=== PATIENT | male | born 1935 | race Caucasian/White ===

== ENCOUNTER 2016-12-12 15:12 | Emergency (ER) | payer MEDICARE, BC | END 2016-12-12 19:15 | disposition home or self-care (01) | DX: R00.1 Bradycardia, unspecified (principal); I10 Essential (primary) hypertension; I48.0 Paroxysmal atrial fibrillation; Z79.82 Long term (current) use of aspirin ==

== ENCOUNTER 2017-04-10 03:01 | Outpatient (CLI) | payer MEDICARE, BC | END 2017-04-10 03:02 | disposition critical access hospital (66) | LOC: EMS 03:01 | PROVIDERS: ATTEND Surgery | DX: R07.9 Chest pain, unspecified (principal); R11.0 Nausea; R06.02 Shortness of breath | CPT/HCPCS: A0425; A0427 ==

== ENCOUNTER 2017-04-10 03:44 | Emergency (ER) | payer MEDICARE, BC ==
[2017-04-10] MEDS ORDERED: MAG HYDROX/AL HYDROX/SIMETH 30 ML UDC PO STA ×2 (03:57→08:25)
[2017-04-10] MEDS ORDERED: FAMOTIDINE 20 MG TABLET PO STA (03:57)
[2017-04-10] MEDS ORDERED: SUCRALFATE 1 GM/10 ML UDC PO STA (03:57)
[2017-04-10] MEDS ORDERED: LIDOCAINE VISCOUS 2% 15 ML UDC MM STA (03:57)
[2017-04-10] MEDS ORDERED: SUCRALFATE 1 GM/10 ML UDC ONE (04:01)
--- NOTE | 2017-04-10 04:01 | ED Physician Documentation ---
PD HPI CHEST PAIN - Stated complaint Stated Complaint: CP/BACK PAIN - Chief complaint Chief Complaint: Cardiac - History obtained from History obtained from: Patient, Family, EMS - History of Present Illness Timing - onset: Today Timing - onset during: Sleep Timing - duration: Hours (2) Timing - details: Abrupt onset Pain level max: 10 Pain level now: 6 Quality: Pain Location: Substernal Radiation: Other (non-radiating) Improved by: Nitro (x2), ASA (EMS gave ASA and NTG [employer]) Worsened by: Inspiration, Movement, Palpation Associated symptoms: Shortness of air (states hard to take a deep breath). No: Diaphoresis, Nausea, Vomiting, Feeling faint / dizzy, General Weakness, Palpitations, Cough Similar symptoms before: Has not had sx before Recently seen: Not recently seen - Additional information Additional information: states ate "very spicy chance" last night before bed. Review of Systems Ten Systems: 10 systems reviewed and negative Constitutional: denies: Fever, Chills Ears: denies: Ear pain Nose: denies: Rhinorrhea / runny nose, Congestion Throat: denies: Sore throat Cardiac: denies: Chest pain / pressure Respiratory: denies: Cough GI: denies: Abdominal Pain, Nausea, Vomiting, Diarrhea Skin: denies: Rash Musculoskeletal: denies: Neck pain, Back pain Neurologic: denies: Focal weakness, Numbness, Headache PD PAST MEDICAL HISTORY - Past Medical History Past Medical History: Yes Cardiovascular: Hypertension, High cholesterol, Atrial fibrillation Respiratory: None Neuro: None Endocrine/Autoimmune: None GI: GERD : None HEENT: None Psych: Claustrophobia Musculoskeletal: None Derm: None - Past Surgical History Past Surgical History: Yes HEENT: Cataracts, Tonsil/Adenoidectomy - Present Medications Home Medications: Ambulatory Orders Medication Instructions Recorded Confirmed Aspirin [Zoila] 325 mg PO ONCE 02/01/14 04/10/17 Bicalutamide [Casodex] 25 mg PO DAILY 02/01/14 04/10/17 Tamsulosin [Flomax] 0.4 mg PO ONCE 02/01/14 04/10/17 Donepezil HCl 5 mg PO DAILY 04/10/17 04/10/17 Doxycycline Hyclate 100 mg PO BID #14 capsule 04/10/17 Omeprazole [PriLOSEC] 20 mg PO DAILY #30 capsule 04/10/17 - Allergies Allergies/Adverse Reactions: Allergies Allergy/AdvReac Type Severity Reaction Status Date / Time Penicillins Allergy Mild Rash Verified 02/01/14 09:59 - Social History Does the pt smoke?: No Smoking Status: Never smoker Does the pt drink ETOH?: No Does the pt have substance abuse?: No - Immunizations Immunizations are current?: Yes PD ED PE NORMAL - Vitals Vital signs reviewed: Yes - General General: Alert and oriented X 3, No acute distress, Well developed/nourished - HEENT HEENT: PERRL, Moist mucous membranes - Neck Neck: Supple, no meningeal sign, No bony TTP, No JVD, No bruit - Cardiac Cardiac: RRR, No murmur, Strong equal pulses - Respiratory Respiratory: No respiratory distress, Clear bilaterally - Abdomen Abdomen: Normal bowel sounds, Soft, Non distended, Other (TTP epigastric and RUQ. no peritoneal signs. ) - Derm Derm: Warm and dry - Extremities Extremities: No edema, No calf tenderness / cord - Neuro Neuro: Alert and oriented X 3 - Psych Psych: Normal mood, Normal affect Results - Vitals Vitals: Vital Signs - 24 hr 04/10/17 04/10/17 03:45 05:13 Temperature 36.7 C Heart Rate 67 54 L Respiratory 20 20 Rate Blood Pressure 140/71 H 96/64 O2 Saturation 99 98 Oxygen O2 Source Nasal cannula - EKG (time done) 0400 Rate: Rate (enter#) (56) Rhythm: NSR [place]: Normal Intervals: Normal [place] QRS: Normal Ischemia: Normal ST segments, Q waves (III, aVF) - Labs Labs: Laboratory Tests 04/10/17 04/10/17 04/10/17 04:15 04:15 04:15 WBC 6.8 RBC 3.66 L Hgb 11.4 L Hct 34.2 L MCV 93.4 MCH 31.2 H MCHC 33.4 RDW 13.4 Plt Count 155 MPV 7.4 Neut # 5.7 Lymph # 0.4 L [place] # 0.5 Eos # 0.1 Baso # 0.1 Absolute Nucleated RBC 0.00 Nucleated RBCs 0.0 Sodium 139 Potassium 3.7 Chloride 105 Carbon Dioxide 27 Anion Gap 7.0 BUN 21 H Creatinine 1.0 Estimated GFR (MDRD) 72 L Glucose 118 H Calcium 10.7 H Total Bilirubin 0.8 AST 20 ALT 18 Alkaline Phosphatase 54 Troponin I < 0.04 Total Protein 6.1 L Albumin 3.5 Globulin 2.6 Albumin/Globulin Ratio 1.3 Lipase 21 L 04/10/17 05:35 WBC RBC Hgb Hct MCV MCH MCHC RDW Plt Count MPV Neut # Lymph # [place] # Eos # Baso # Absolute Nucleated RBC Nucleated RBCs Sodium Potassium Chloride Carbon Dioxide Anion Gap BUN Creatinine Estimated GFR (MDRD) Glucose Calcium Total Bilirubin AST ALT Alkaline Phosphatase Troponin I < 0.04 Total Protein Albumin Globulin Albumin/Globulin Ratio Lipase - Rads (name of study) cxr Radiology: Prelim report reviewed, EMP read contemporaneously, See rad report ( mild L lung base opacity. Could reflect early pneumonia in the proper clinical setting. ) PD MEDICAL DECISION MAKING - ED course Complexity details: reviewed results, re-evaluated patient, considered differential (No ST elevation [place], no aortic dissection, no PE, no tension pneumothorax, no aortic aneurysm), d/w patient ED course: Patient is an 81-year-old male who presents to the emergency department with chest pain tonight. Symptoms resolved with GI cocktail. Likely that this is GI related in origin given his change in diet with spicy chance last night and resolution with the GI cocktail. No evidence of acute coronary syndrome. Troponin negative, EKG negative. Will have him follow-up with his doctor for further evaluation and care. Patient counseled regarding signs and symptoms for which I believe and urgent re-evaluation would be necessary. Patient with good understanding of and agreement to plan and is comfortable going home at this time This document was made in part using voice recognition software. While efforts are made to proofread this document, sound alike and grammatical errors may occur. Did offer observation for chest pain rule out, pt declines. Departure - Departure Disposition: Home, Self Care Clinical Impression: GERD (gastroesophageal reflux disease) Qualifiers: Esophagitis presence: esophagitis presence not specified Qualified Code(s): K21.9 - Gastro-esophageal reflux disease without esophagitis Pneumonia Qualifiers: Pneumonia type: due to unspecified organism Laterality: left Lung location: lower lobe of lung Qualified Code(s): J18.1 - Lobar pneumonia, unspecified organism Condition: Good Instructions: ED GERD Follow-Up: your,doctor in 3 days. [Other] Prescriptions: Doxycycline Hyclate 100 mg PO BID #14 capsule Omeprazole [PriLOSEC] 20 mg PO DAILY #30 capsule Comments: Return if you worsen. Eat a bland diet at home. This should help prevent recurrence of your symptoms. Take all antibiotics until gone.
[2017-04-10] MEDS ORDERED: FAMOTIDINE 20 MG TABLET ONE (04:02)
[2017-04-10] MEDS ORDERED: MAG HYDROX/AL HYDROX/SIMETH 30 ML UDC ONE ×2 (04:02→08:25)
[2017-04-10 04:26] LABS: BASOPHILS # (AUTO) 0.1 10^3/uL (0.0-0.1); BASOPHILS % (AUTO) 0.8 %; EOSINOPHILS # (AUTO) 0.1 10^3/uL (0.0-0.7); EOSINOPHILS % (AUTO) 1.2 %; HCT - HEMATOCRIT 34.2 % (42.0-52.0); HGB - HEMOGLOBIN 11.4 g/dL (14.0-18.0); LYMPHOCYTES # (AUTO) 0.4 10^3/uL (1.5-3.5); LYMPHOCYTES % (AUTO) 5.7 %; MEAN CORPUSCULAR HEMOGLOBIN 31.2 pg (27.0-31.0); MEAN CORPUSCULAR HGB CONC 33.4 g/dL (32.0-36.0); MEAN CORPUSCULAR VOLUME 93.4 fL (80.0-94.0); MEAN PLATELET VOLUME 7.4 fL (7.4-11.4); MONOCYTES # (AUTO) 0.5 10^3/uL (0.0-1.0); MONOCYTES % (AUTO) 7.6 %; NEUTROPHILS # (AUTO) 5.7 10^3/uL (1.5-6.6); NEUTROPHILS % (AUTO) 84.7 %; RED BLOOD COUNT 3.66 10^6/uL (4.70-6.10); RED CELL DISTRIBUTION WIDTH 13.4 % (12.0-15.0); UNCORRECTED WHITE BLOOD COUNT 6.8 x10^3/uL; WHITE BLOOD COUNT 6.8 x10^3/uL (4.8-10.8)
[2017-04-10 04:34] LABS: ALBUMIN/GLOBULIN RATIO 1.3 (1.0-2.2); BILIRUBIN,TOTAL 0.8 mg/dL (0.2-1.0); CALCIUM 10.7 mg/dL (8.5-10.3); POTASSIUM 3.7 mmol/L (3.5-5.0); TOTAL PROTEIN 6.1 g/dL (6.7-8.2)
[2017-04-10] MEDS ORDERED: PANTOPRAZOLE 40 MG VIAL IVP STA (05:09)
--- NOTE | 2017-04-10 05:09 | XRAY Preliminary Report ---
Exam: XR Chest 1 View IMPRESSION: Mild left lung base opacity could reflect early pneumonia in the proper clinical setting. [facility] SITE ID: [id number]
[2017-04-10] MEDS ORDERED: PANTOPRAZOLE 40 MG TABLET ONE (05:11)
--- NOTE | 2017-04-10 05:11 | XRAY Report ---
EXAM: CHEST RADIOGRAPHY EXAM DATE: 04/10/2017 05:01 AM. CLINICAL HISTORY: Chest pain. COMPARISON: None. TECHNIQUE: 1 view. FINDINGS: Lungs/Pleura: Mild left lung base opacity with otherwise clear lungs. No gross pneumothorax or large effusion. Mediastinum: Within exam limitations, cardiomediastinal contour is normal. Other: None. IMPRESSION: Mild left lung base opacity could reflect early pneumonia in the proper clinical setting. [facility] Referring Provider Line: [phone] SITE ID: [id number]
[2017-04-10] MEDS ORDERED: PANTOPRAZOLE 40 MG TABLET PO STA (05:28)
[2017-04-10 06:12] VITALS: BP 116/70
== END 2017-04-10 09:17 | disposition home or self-care (01) ==
LOC: EDUNIT# → ED 03:44
DX: K21.9 Gastro-esophageal reflux disease without esophagitis (principal); J18.9 Pneumonia, unspecified organism; I10 Essential (primary) hypertension; Z79.82 Long term (current) use of aspirin
CPT/HCPCS: 36415; 71010; 80053; 83690; 84484; 85025; 93005; 99284; 99285; A9270

== ENCOUNTER 2017-08-24 08:00 | Outpatient (CLI) | payer MEDICARE, BC | END 2017-08-24 08:01 | disposition home or self-care (01) | LOC: LAB.S 08:00 | PROVIDERS: ATTEND Radiology Radiation Oncology | DX: Z08 Encounter for follow-up examination after completed treatment for malignant neoplasm (principal); C76.0 Malignant neoplasm of head, face and neck; Z85.819 Personal history of malignant neoplasm of unspecified site of lip, oral cavity, and pharynx | CPT/HCPCS: 36415; 84443 ==

== ENCOUNTER 2018-04-11 19:10 | Emergency (ER) | payer MEDICARE, BC ==
[2018-04-11 19:44] LABS: BASOPHILS % (AUTO) 0.8 %; EOSINOPHILS # (AUTO) 0.1 10^3/uL (0.0-0.7); EOSINOPHILS % (AUTO) 2.2 %; HGB - HEMOGLOBIN 13.7 g/dL (14.0-18.0); LYMPHOCYTES # (AUTO) 0.9 10^3/uL (1.5-3.5); LYMPHOCYTES % (AUTO) 15.4 %; MEAN CORPUSCULAR HEMOGLOBIN 31.1 pg (27.0-31.0); MEAN CORPUSCULAR HGB CONC 33.8 g/dL (32.0-36.0); MEAN PLATELET VOLUME 8.5 fL (7.4-11.4); MONOCYTES # (AUTO) 0.5 10^3/uL (0.0-1.0); MONOCYTES % (AUTO) 9.5 %; NEUTROPHILS # (AUTO) 4.1 10^3/uL (1.5-6.6); NEUTROPHILS % (AUTO) 72.1 %; PLT - PLATELET COUNT 170 10^3/uL (130-450); RED BLOOD COUNT 4.39 10^6/uL (4.70-6.10); RED CELL DISTRIBUTION WIDTH 13.6 % (12.0-15.0); WHITE BLOOD COUNT 5.7 x10^3/uL (4.8-10.8)
[2018-04-11] MEDS ORDERED: SODIUM CHLORIDE 0.9% 1,000 ML IV ONE (19:47)
[2018-04-11 19:53] LABS: ALBUMIN/GLOBULIN RATIO 1.5 (1.0-2.2); BILIRUBIN,TOTAL 0.7 mg/dL (0.2-1.0); CALCIUM 10.9 mg/dL (8.5-10.3); CREATININE 0.9 mg/dL (0.6-1.2); TOTAL PROTEIN 6.7 g/dL (6.7-8.2)
--- NOTE | 2018-04-11 19:54 | ED Physician Documentation ---
PD HPI ABD PAIN - Stated complaint Stated Complaint: PORTILLO/STOMACH/BACK PX - Chief complaint Chief Complaint: Abd Pain - History obtained from History obtained from: Patient, Family, EMS - History of Present Illness Timing - onset: Other (This is an 82-year-old gentleman with history of prostate and throat cancer, both in remission who presents with 4 days of left- sided abdominal pain radiating like a band around to the right and through the back. It has been unwavering and constant throughout those 4 days and it has not moved. It is not severe. He has decreased appetite but that is kind of a chronic process since his cancer treatments. His bowel movements have been decreased, but he is not eating much. He denies any fevers, he vacillates on whether or not he has nausea. He says anyways he does not have significant nausea and he has not thrown up.) Review of Systems Constitutional: reports: Fatigue (4 years). denies: Fever, Chills Cardiac: denies: Chest pain / pressure, Palpitations Respiratory: denies: Dyspnea, Cough GI: reports: Abdominal Pain, Nausea. denies: Vomiting, Constipation, Diarrhea, Hematemesis, Bloody / black stool : denies: Dysuria PD PAST MEDICAL HISTORY - Past Medical History Cardiovascular: Hypertension, High cholesterol, Atrial fibrillation Respiratory: None Endocrine/Autoimmune: None GI: GERD : None HEENT: None Psych: Claustrophobia Musculoskeletal: None Derm: None Other Past Medical History: Cancer multiple areas - Past Surgical History Past Surgical History: Yes HEENT: Cataracts, Tonsil/Adenoidectomy - Present Medications Home Medications: Ambulatory Orders Medication Instructions Recorded Confirmed Aspirin [Zoila] 81 mg PO ONCE 02/01/14 04/10/17 Bicalutamide [Casodex] 25 mg PO DAILY 02/01/14 04/10/17 Tamsulosin [Flomax] 0.4 mg PO ONCE 02/01/14 04/10/17 Omeprazole [PriLOSEC] 20 mg PO DAILY #30 capsule 04/10/17 - Allergies Allergies/Adverse Reactions: Allergies Allergy/AdvReac Type Severity Reaction Status Date / Time Penicillins Allergy Mild Rash Verified 04/11/18 19:20 - Social History Does the pt smoke?: No Smoking Status: Never smoker Does the pt drink ETOH?: No Does the pt have substance abuse?: No - Family History Family history: reports: Non contributory - Immunizations Immunizations are current?: Yes PD ED PE NORMAL - Vitals Vital signs reviewed: Yes - General General: Alert and oriented X 3, No acute distress - HEENT HEENT: PERRL, EOMI - Neck Neck: Supple, no meningeal sign, No bony TTP - Cardiac Cardiac: Other (Somewhat bradycardic with frequent extrasystoles, no murmur) - Respiratory Respiratory: No respiratory distress, Clear bilaterally - Abdomen Abdomen: Other (Minimal left-sided abdominal tenderness without surgical signs, soft) - Back Back: No CVA TTP, No spinal TTP - Derm Derm: Normal color, Warm and dry - Extremities Extremities: No edema, No calf tenderness / cord - Neuro Neuro: Alert and oriented X 3, Normal speech Results - Vitals Vitals: Vital Signs - 24 hr 04/11/18 19:15 Temperature 36.4 C L Heart Rate 59 L Respiratory 20 Rate Blood Pressure 158/107 H O2 Saturation 100 Oxygen O2 Source Room air - EKG (time done) 1932 Rate: Rate (enter#) (41) Rhythm: Sinus bradycardia (with PVCs) [place]: LAD Intervals: Normal [place] QRS: Normal Ischemia: Non specific changes - Labs Labs: Laboratory Tests 04/11/18 04/11/18 04/11/18 19:30 19:30 19:30 WBC 5.7 RBC 4.39 L Hgb 13.7 L Hct 40.4 L MCV 92.0 MCH 31.1 H MCHC 33.8 RDW 13.6 Plt Count 170 MPV 8.5 Neut # (Auto) 4.1 Lymph # (Auto) 0.9 L [place] # (Auto) 0.5 Eos # (Auto) 0.1 Baso # (Auto) 0.0 Absolute Nucleated RBC 0.00 Nucleated RBC % 0.0 Sodium 135 Potassium 3.9 Chloride 100 L Carbon Dioxide 31 Anion Gap 4.0 L BUN 19 Creatinine 0.9 Estimated GFR (MDRD) 81 L Glucose 100 Calcium 10.9 H Total Bilirubin 0.7 AST 16 ALT 14 Alkaline Phosphatase 58 Troponin I < 0.04 Total Protein 6.7 Albumin 4.0 Globulin 2.7 Albumin/Globulin Ratio 1.5 Lipase 30 - Rads (name of study) 2v chest XR Radiology: EMP read contemporaneously (normal) CT A/P Radiology: EMP read contemporaneously (Negative CT, although to my eye he has a prominent stool load especially on the left side.) PD MEDICAL DECISION MAKING - ED course Complexity details: reviewed old records (His heart rate is always in the range of 40s and 50s.) ED course: 82-year-old gentleman has had 4 days of left-sided abdominal pain radiating across the front associated with fatigue and poor appetite, although to some extent with poor appetite has been going on for a couple of years throughout his cancer treatments.His exam is pretty benign and his labs are within normal limits. The CT is officially read as normal but to my eye there is a large stool load. He is given a bottle magnesium citrate to try and close follow-up is recommended. - Sepsis Event Vital Signs: Vital Signs - 24 hr 04/11/18 19:15 Temperature 36.4 C L Heart Rate 59 L Respiratory 20 Rate Blood Pressure 158/107 H O2 Saturation 100 Oxygen O2 Source Room air Departure - Departure Disposition: Home, Self Care Clinical Impression: Abdominal pain Qualifiers: Abdominal location: generalized Qualified Code(s): R10.84 - Generalized abdominal pain Constipation Qualifiers: Constipation type: slow transit constipation Qualified Code(s): K59.01 - Slow transit constipation Condition: Good Record reviewed to determine appropriate education?: Yes Instructions: ED Abdominal Pain Unkn Cause Comments: If the magnesium citrate does not relieve your symptoms over the next day or 2 please return or see her doctor for reevaluation, return sooner if worsening or new symptoms develop.
[2018-04-11] MEDS ORDERED: IOPAMIDOL-300 100 ML VIAL ONE (20:09)
[2018-04-11] MEDS ORDERED: IOPAMIDOL-300 100 ML VIAL IVP ONE (20:17)
--- NOTE | 2018-04-11 21:03 | XRAY Report ---
Procedure Date: 04/11/2018 Accession Number: [id number] / [id number] Procedure: XR - Chest 2 View X-Ray CPT Code: 66718 FULL RESULT: EXAM: CHEST RADIOGRAPHY EXAM DATE: 04/11/2018 08:27 PM. CLINICAL HISTORY: Chest pressure. COMPARISON: CHEST 1 VIEW 04/10/2017. TECHNIQUE: 2 views. FINDINGS: Lungs/Pleura: Lungs are well-expanded. No evidence of consolidation or effusion. Focal opacity projecting over the right upper chest is probably extrinsic to the patient. No pneumothorax. Mediastinum: Heart and mediastinal contours are unremarkable. Other: None. IMPRESSION: No acute intrathoracic plain film abnormality. [facility]
--- NOTE | 2018-04-11 21:03 | CT Report ---
Procedure Date: 04/11/2018 Accession Number: [id number] / [id number] Procedure: CT - Abdomen/Pelvis W/ CPT Code: FULL RESULT: EXAM: CT ABDOMEN AND PELVIS EXAM DATE: 04/11/2018 08:25 PM. CLINICAL HISTORY: Left lower quadrant pain COMPARISONS: None. TECHNIQUE: Routine helical CT imaging was performed through the abdomen and pelvis. IV contrast: ISOVUE 300 100mL. Enteric contrast: No. Reconstructions: Coronal and sagittal. In accordance with CT protocol optimization, one or more of the following dose reduction techniques were utilized for this exam: automated exposure control, adjustment of mA and/or KV based on patient size, or use of iterative reconstructive technique. FINDINGS: Lung Bases: Unremarkable. Liver: Flow density foci within the liver may represent cysts. Gallbladder/Bile Ducts: Unremarkable. Spleen: Normal. Pancreas: No acute abnormalities. Adrenal Glands: Normal. Kidneys: Normal. No masses or hydronephrosis. Peritoneal Cavity/Bowel: No dilated or thick-walled bowel is seen. No intraperitoneal free air or free fluid. No enlarged mesenteric or retroperitoneal lymph nodes. No evidence of appendicitis. Pelvic Organs: Prostate seeds are in place. No acute pelvic organ abnormalities are seen. Vasculature: There are atheromatous calcifications of the aorta and branch vessels. No acute vascular abnormalities are seen. Bones: No significant abnormality. Other: None. IMPRESSION: Negative contrast enhanced CT of the abdomen and pelvis. No acute solid or hollow viscus organ abnormalities to account for the patient's left lower quadrant pain. [facility]
[2018-04-11] MEDS ORDERED: MAGNESIUM CITRATE 296 ML BOTTLE PO STA (21:07)
[2018-04-11 21:14] VITALS: BP 174/106
== END 2018-04-11 21:21 | disposition home or self-care (01) ==
LOC: ED 19:10
DX: R10.84 Generalized abdominal pain (principal); K59.01 Slow transit constipation; R00.1 Bradycardia, unspecified; I10 Essential (primary) hypertension; Z85.46 Personal history of malignant neoplasm of prostate; Z85.89 Personal history of malignant neoplasm of other organs and systems; Z79.82 Long term (current) use of aspirin
CPT/HCPCS: 36415; 71046; 74177; 80053; 83690; 84484; 85025; 93005; 96360; 99283; 99284; A9270; Q9967

== ENCOUNTER 2018-08-31 12:26 | Outpatient (CLI) | payer MEDICARE, BC | END 2018-08-31 12:27 | disposition home or self-care (01) | LOC: LAB.F 12:26 | PROVIDERS: ATTEND Radiology Radiation Oncology | DX: Z08 Encounter for follow-up examination after completed treatment for malignant neoplasm (principal); Z85.819 Personal history of malignant neoplasm of unspecified site of lip, oral cavity, and pharynx | CPT/HCPCS: 36415; 84443 ==

== ENCOUNTER 2018-12-17 14:11 | Outpatient (CLI) | payer MEDICARE, BC ==
[2018-12-17 18:26] LABS: ALBUMIN 3.5 g/dL (3.2-5.5); ALBUMIN/GLOBULIN RATIO 1.5 (1.0-2.2); BILIRUBIN,TOTAL 0.3 mg/dL (0.2-1.0); CALCIUM 10.4 mg/dL (8.5-10.3); CREATININE 0.9 mg/dL (0.6-1.2); TOTAL PROTEIN 5.9 g/dL (6.7-8.2)
[2018-12-17 19:17] LABS: BASOPHILS % (AUTO) 0.4 %; EOSINOPHILS # (AUTO) 0.2 10^3/uL (0.0-0.7); HGB - HEMOGLOBIN 12.5 g/dL (14.0-18.0); LYMPHOCYTES # (AUTO) 0.8 10^3/uL (1.5-3.5); LYMPHOCYTES % (AUTO) 19.8 %; MEAN CORPUSCULAR HEMOGLOBIN 30.1 pg (27.0-31.0); MEAN CORPUSCULAR HGB CONC 33.4 g/dL (32.0-36.0); MEAN CORPUSCULAR VOLUME 90.2 fL (80.0-94.0); MEAN PLATELET VOLUME 8.5 fL (7.4-11.4); MONOCYTES # (AUTO) 0.4 10^3/uL (0.0-1.0); MONOCYTES % (AUTO) 10.4 %; NEUTROPHILS # (AUTO) 2.5 10^3/uL (1.5-6.6); NEUTROPHILS % (AUTO) 64.4 %; PLT - PLATELET COUNT 152 10^3/uL (130-450); RED BLOOD COUNT 4.15 10^6/uL (4.70-6.10); RED CELL DISTRIBUTION WIDTH 13.5 % (12.0-15.0); WHITE BLOOD COUNT 3.9 x10^3/uL (4.8-10.8)
== END 2018-12-17 14:12 | disposition home or self-care (01) ==
LOC: LAB.F 14:11
PROVIDERS: ATTEND Nurse Practitioner
DX: Z08 Encounter for follow-up examination after completed treatment for malignant neoplasm (principal); Z85.819 Personal history of malignant neoplasm of unspecified site of lip, oral cavity, and pharynx
CPT/HCPCS: 36415; 80053; 84153; 85025

== ENCOUNTER 2019-03-11 08:00 | Outpatient (CLI) | payer MEDICARE, BC | END 2019-03-11 23:59 | disposition home or self-care (01) | LOC: LAB.F 08:00 | PROVIDERS: ATTEND Nurse Practitioner | DX: Z08 Encounter for follow-up examination after completed treatment for malignant neoplasm (principal); Z85.819 Personal history of malignant neoplasm of unspecified site of lip, oral cavity, and pharynx | CPT/HCPCS: 36415; 84153 ==

== ENCOUNTER 2020-04-16 10:00 | Outpatient (CLI) | payer MEDICARE, BC | END 2020-04-16 10:01 | disposition home or self-care (01) | LOC: LAB.S 10:00 | PROVIDERS: ATTEND Radiology Radiation Oncology | DX: Z08 Encounter for follow-up examination after completed treatment for malignant neoplasm (principal); Z85.819 Personal history of malignant neoplasm of unspecified site of lip, oral cavity, and pharynx; C76.0 Malignant neoplasm of head, face and neck | CPT/HCPCS: 36415; 84443 ==

== ENCOUNTER 2020-08-08 14:00 | Outpatient (CLI) | payer MEDICARE, BC ==
--- NOTE | 2020-08-08 19:01 | CONSULTATION NOTE ---
Palliative Care Consultation - Referral Referring Provider: Dr. Marguerite Lawrence Time of Visit: 4501-4896 Referral setting: Home Referral Reason: Met Prostate Cancer/Anxiety/Constipation/Pain - Information Sources Records reviewed: Previous records reviewed History/Review of Systems obtained from: Patient, Family ( Rachele) Exam limitations: Clinical condition (mild STM) - History of Present Illness Brief History of Present Illness: This is a aayush 84-year-old gentleman who has metastatic prostate cancer, involving intra-abdominal lymph nodes without bony involvement. His initial diagnosis was in 2005 when he received brachytherapy, and was followed with serial PSAs. He was found to have metastatic prostate cancer in May 2018, and at that point in time initiated Lupron every 3 months. He was looking to have his care closer to home, recently established care with Dr. Yulissa [facility], he and his are finding the need to localize their medical care as they have aged. The plan is to continue Lupron every 3 months, and most recently has been initiated on weekly Taxotere, with the plan 2 weeks on and 1 week off. 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 He received chemoradiation therapy at that point in time, and found it very onerous treatment with significant weight loss and complex side effects. He is on active surveillance for this currently, and has some residual neuropathy from his original [place]. Patient had originally had significant pain and discomfort notably on his left upper thoracic area radiating into the abdomen. He does feel this may have been influenced some by constipation. For which he continues to struggle with. He continues with mild anorexia, high anxiety, and fatigue. Palliative care to establish care today to assist with pain and symptom management, anticipatory guidance, and advanced care planning. Medical/Surgical History - Past Medical History Cardiovascular: reports: Hypertension, High cholesterol, Atrial fibrillation Respiratory: reports: None Neuro: Headaches, Peripheral neuropathy, Other (mild STM) Endocrine/Autoimmune: reports: None GI: reports: GERD : reports: Nocturia, Frequency, Other (met prostate CA) HEENT: reports: None Psych: reports: Anxiety, Claustrophobia Musculoskeletal: reports: Fatigue Derm: reports: None MRSA Hx?: No - Past Surgical History General: reports: Other (hernia repair) Cardiovascular: reports: Other (portacath placement) HEENT: reports: Cataracts, Tonsil/Adenoidectomy Derm: reports: Other (biopsy lymph jenaro) - Substance History Use: Uses substance without health or social issues: Tobacco (hx smoking 40 pack years), 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. He and his recently downsized, which has been an adjustment for them, they do have 1 son and 3 granddaughters that provide significant support and moon. They do have 1 son who unfortunately 48 years ago. Neil his is still in good health, but does have some vision problems. They are well supported and have many friends in the community. But have found it limiting with the pandemic. Family History - Family History Family History: Mother: (son), Father: , Other family: Medications/Allergies - Medications Home Medications: Ambulatory Orders Medication Instructions Recorded Confirmed Aspirin [Zoila] 81 mg PO ONCE 02/01/14 08/10/20 Tamsulosin [Flomax] 0.4 mg PO ONCE 02/01/14 08/10/20 Prochlorperazine Maleate 10 mg PO Q6HR PRN #30 tab 07/25/20 08/10/20 [Compazine] predniSONE [Prednisone] 5 mg PO DAILY #90 tablet 07/25/20 08/10/20 Nystatin 100,000 unit PO Q6HR 08/07/20 08/10/20 Senna [Senokot] 1 - 2 tab PO DAILY PRN 08/10/20 08/10/20 polyethylene glycoL 3350 [Miralax] 17 gm PO DAILY 08/10/20 08/10/20 - Allergies Allergies/Adverse Reactions: Allergies Allergy/AdvReac Type Severity Reaction Status Date / Time Penicillins Allergy Mild Rash Verified 08/07/20 12:38 Review of Systems - Constitutional Constitutional: reports: Fatigue, Poor appetite, Weight stable (135-16). denies: Fever, Chills - Ears, Nose & Throat Ears, Nose & Throat: reports: Other (lesion left tongue area/white adherent has been present 2-3 years; worsened with pain recently with initation of nystatin improved pain/discomfort) - Cardiovascular Cardiovascular: reports: Irregular heart rate, Palpitations, Lightheadedness, Exertional dyspnea, Decr. exercise tolerance. denies: Chest pain, Edema - Respiratory Respiratory: reports: SOB with exertion. denies: SOB at rest - Gastrointestinal Gastrointestinal: reports: Abdominal pain (LUQ), Constipation, Early satiety, Other (taste changes). denies: Nausea - Genitourinary Genitourinary: reports: Frequency, Nocturia - Musculoskeletal Musculoskeletal: reports: Stiffness, Muscle weakness - Integumentary Integumentary: reports: Dryness - Neurological Neurological: reports: Headache (intermittent), Memory problems (STM) - Psychiatric Psychiatric: reports: Depression, Anxiety - All Other Systems All Other Systems: reports: Reviewed and negative Physical Exam - Vital Signs Temperature: 96.9 C Pulse Rate: 72 Respiratory Rate: 16 O2 Saturation: 95 (ra @ rest) Blood Pressure: 132/72 - Physical Exam General Appearance: positive: No acute distress, Alert Eyes Bilateral: positive: Normal inspection ENT: positive: Oral lesions (under left tongue 0.5 x 1 cm; white) Neck: positive: Trachea midline. negative: Lymphadenopathy (R), Lymphadenopathy (L) Cardiovascular: positive: Irregular Respiratory: positive: No respiratory distress, Diminished in bases. negative: Wheezes, Rales, Rhonchi Abdomen: positive: Soft, Nml bowel sounds Skin: positive: Pallor, Dryness Extremities: positive: No pedal edema Neurologic/Psychiatric: positive: Oriented x3, Weakness, Depressed mood/affect Palliative Care - POLST Patient has POLST: No Pain: Pain improved, Location (left upper quadrant; point tenderness on palpation over thoracic rib area;) Tiredness/Fatigue: Moderate (4-6) Drowsiness/Sedation: Mild (1-3) (sleeping more during day) Nausea: None Anorexia: Moderate (4-6) Dyspnea: Mild (1-3) Depression: Mild (1-3) Anxiety: Moderate (4-6) Feelings of wellbeing/Perceived Quality of Life: Fair, Acceptable Sleep: Variable sleep pattern Constipation: Yes, Unmanaged Performance Status: Patient had been walking up to a mile and a half a day, now presents with decreasing activity tolerance and fatigue. He is able to manage his own ADLs, is driving some, but is unable to drive in the dark. - Palliative Care Discussion: Patient does understand his treatment is palliative in nature, he is quite angry regarding his diagnosis, his declining health more specifically related to the aging process, the many losses that come along with his. He very much wants to leave a Legacy, reports he himself is quite dramatic, and very talkative. He reports he does not want to , but is not afraid of it. He proceed to have advanced care directives, and agreed we would review and update them with next visit. Both he and his are processing this most recent decline in his health, patient does worry about the impact and follow-up for Rachele. Results - Lab Results Lab results reviewed: Yes Impression and Recommendations - Palliative Care Impression: This is an 84-year-old gentleman who presents with metastatic prostate cancer involving intra-abdominal lymph nodes with recent progression. He has started on Taxotere, and admits underlying anxiety, continues with constipation, and fluctuating pain levels. Palliative care to provide support regarding symptom management, psychosocial support, and anticipatory guidance with advanced care planning. Recommendations/Counseling Done: 1. Constipation. This is most likely multifactorial, it does appear though to increase his abdominal pain and discomfort. Patient has been instructed to initiate half To 1 capful of MiraLAX daily, titrating up to twice a day if needed, initiate senna 8.61-2 tabs if no bowel movement in 48 hours. Written instructions provided, patient verbalized understanding. 2. Anorexia. Counseling provided regarding multiple strategies, including use of supplements if missing meals. Goal is for her no further weight loss, encourage small frequent feedings, and continued concentration on hydration with calorie laden fluids. Patient may benefit from dietary support referral. 3. Generalized weakness. Patient has had a decline in his endurance, counseling provided regarding balance of activity pacing and keeping strength up. Counseling provided regarding a progressive ambulation program, with goal to sustain 10 to 15 minutes daily. 4. Anxiety. Patient with appropriate emotional response, counseling provided to normalize grief and loss in the context of both his recurrent cancer and losses accumulating with 18. Patient may benefit from mirtazapine, both for appetite, weight gain and mood. Will continue to monitor, and offer up, patient does not like medications, so we will need to introduce if symptoms worsening. 5. Advanced care planning. Patient and do report they have advanced care planning documents, will review with both of them at next visit, will set up 1 more home visit to help facilitate family conference regarding this. 6. Oral lesion, left-sided tongue. Patient was having increased pain, this improved with initiation of nystatin, does appear to be soft adherent area, more reflective of leukopenia, reports dentist has been watching for 2 to 3 years. We will continue to monitor, and follow-up accordingly secondary to history of oral cancer. Time Spent: 90 minutes with greater than 50% of this done in counseling regarding processing patient's current emotional response to diagnosis, psychosocial support, developing of rapport, counseling regarding symptom management and anticipatory guidance.
== END 2020-08-08 14:01 | disposition home or self-care (01) ==
LOC: PC 14:00
PROVIDERS: ATTEND Nurse Practitioner Adult Health
DX: Z51.5 Encounter for palliative care (principal); G89.3 Neoplasm related pain (acute) (chronic); K59.00 Constipation, unspecified; R63.0 Anorexia; R63.4 Abnormal weight loss; R53.1 Weakness; R53.83 Other fatigue; R06.09 Other forms of dyspnea; F41.9 Anxiety disorder, unspecified; G62.0 Drug-induced polyneuropathy; T45.1X5S Adverse effect of antineoplastic and immunosuppressive drugs, sequela; C61 Malignant neoplasm of prostate; C77.2 Secondary and unspecified malignant neoplasm of intra-abdominal lymph nodes; Z79.899 Other long term (current) drug therapy; Z85.89 Personal history of malignant neoplasm of other organs and systems; Z87.891 Personal history of nicotine dependence; Z87.898 Personal history of other specified conditions; Z79.52 Long term (current) use of systemic steroids; Z92.3 Personal history of irradiation
CPT/HCPCS: 99345

== ENCOUNTER 2020-08-22 14:00 | Outpatient (CLI) | payer MEDICARE, BC ==
--- NOTE | 2020-08-22 16:57 | CONSULTATION NOTE ---
Palliative Care Follow Up - Referral Referring Provider: Dr. Marguerite Lawrence Time of Visit: 0428-5516 Referral setting: Home Referral Reason: Met Prostate Cancer/Anxiety - Information Sources Records reviewed: Previous records reviewed History/Review of Systems obtained from: Patient Exam limitations: Clinical condition (patient with mild STM issues) - History of Present Illness Update Brief HPI Update: This is a aayush 84-year-old gentleman who has metastatic prostate cancer, involving intra-abdominal lymph nodes. His initial diagnosis is in 2005 where he received brachytherapy, and was followed with serial PSAs. He was found to have metastatic disease in May 2018, and was initiated on Lupron every 3 months. He is currently initiated on weekly Taxotere, has completed 2 weeks, with minimal side effects other than a little worsening of his already noted peripheral neuropathy with numbness in his hands. His fatigue persists but his abdominal pain has mostly resolved. 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 He had received chemoradiation at that point time, from patient's records it looks like last time he was surveyed was 2016. Patient remains quite anxious, regarding the bigger picture, and his prognosis. We did discuss in the context of prostate cancer there are often multiple treatments and extended time though it is not curable. His pain has improved from left upper thoracic area, radiating to abdomen, he continues to struggle some with constipation but is managing with MiraLAX. He is working not eating 4 times a day, does continue with high anxiety, mild short-term memory issues, and improved fatigue. We had originally set up home visit up in follow-up to be able to have a family meeting with his Neil, they had forgotten I was coming, and is shopping. We did just spend time reviewing his symptoms, addressing anxiety, and continued develop rapport. Past Medical History: Hypertension, high cholesterol, atrial fib, peripheral neuropathy, short-term memory issues, GERD, nocturia, frequency, anxiety, and fatigue, hernia repair, Port-A-Cath placement, cataracts, tonsil adenectomy, biopsy lymph node. Social History - Living Situation Living arrangement: At home Living Situation: With spouse/s.o. 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 He and his recently downsized a year ago, he is still finding it hard to adjust as far as their new place. They do have a 1 son, and 3 grandchildren that provide significant support and moon. They have 1 son who unfortunately at 48 years ago. Neil his is still in good health, but does have vision problems. They are supported and had many friends and community, but have been feeling quite isolated related to the pandemic. He is looking forward to a new project, feels this is what keeps him going. Medications/Allergies - Medications Home Medications: Ambulatory Orders Medication Instructions Recorded Confirmed Aspirin [Zoila] 81 mg PO ONCE 02/01/14 08/21/20 Tamsulosin [Flomax] 0.4 mg PO ONCE 02/01/14 08/21/20 Prochlorperazine Maleate 10 mg PO Q6HR PRN #30 tab 07/25/20 08/10/20 [Compazine] predniSONE [Prednisone] 5 mg PO DAILY #90 tablet 07/25/20 08/10/20 Nystatin 100,000 unit PO Q6HR 08/07/20 08/21/20 Senna [Senokot] 1 - 2 tab PO DAILY PRN 08/10/20 08/21/20 polyethylene glycoL 3350 [Miralax] 17 gm PO DAILY 08/10/20 08/21/20 Omeprazole 20 mg PO DAILY 08/14/20 08/21/20 - Allergies Allergies/Adverse Reactions: Allergies Allergy/AdvReac Type Severity Reaction Status Date / Time Penicillins Allergy Mild Rash Verified 08/21/20 12:29 Review of Systems - Constitutional Constitutional: reports: Fatigue, Poor appetite (improved but still limiting), Weight stable (135-16). denies: Fever, Chills - Eyes Eyes: reports: Blurred vision, Vision loss - Ears, Nose & Throat Ears, Nose & Throat: reports: Hearing loss, Dry mouth, Other (lesion left tongue area/white adherent has been present 2-3 years; worsened with pain recently with initation of nystatin improved pain/discomfort) - Cardiovascular Cardiovascular: reports: Irregular heart rate, Lightheadedness, Exertional dyspnea, Decr. exercise tolerance (has been able to work up to 1/2 mile). denies: Chest pain, Edema - Respiratory Respiratory: reports: SOB with exertion. denies: SOB at rest - Gastrointestinal Gastrointestinal: reports: Constipation (improved), Early satiety, Other (taste changes). denies: Nausea - Genitourinary Genitourinary: reports: Frequency, Nocturia (up 5x a night) - Musculoskeletal Musculoskeletal: reports: Stiffness, Muscle weakness - Integumentary Integumentary: reports: Dryness, Hair changes (alopecia; shaved head) - Neurological Neurological: reports: Headache (intermittent), Memory problems (STM) - Psychiatric Psychiatric: reports: Depression, Anxiety, Aggitation (at times) - Endocrine Endocrine: reports: Intolerance to cold - All Other Systems All Other Systems: reports: Reviewed and negative Physical Exam - Vital Signs Temperature: 97.0 C Pulse Rate: 61 Respiratory Rate: 16 O2 Saturation: 95 (ra @ rest) - Physical Exam General Appearance: positive: No acute distress, Alert Eyes Bilateral: positive: Normal inspection ENT: positive: Oral lesions (under left tongue 0.5 x 0.5; has decreased in size; candidiasis bucally and tongue cleared), Other (scar tissue left neck) Neck: positive: Trachea midline. negative: Lymphadenopathy (R), Lymphadenopathy (L) Cardiovascular: positive: Irregular Respiratory: positive: No respiratory distress Abdomen: positive: Non-tender, Soft Skin: positive: Pallor, Dryness Extremities: positive: No pedal edema Neurologic/Psychiatric: positive: Oriented x3, Weakness, Depressed mood/affect Palliative Care - POLST Patient has POLST: No Pain: Pain improved, Location (LUQ resloved) Tiredness/Fatigue: Moderate (4-6) Drowsiness/Sedation: Mild (1-3) Nausea: None Anorexia: Moderate (4-6) Dyspnea: Mild (1-3) Depression: Mild (1-3) Anxiety: Moderate (4-6) Feelings of wellbeing/Perceived Quality of Life: Good, Acceptable Sleep: Sleeps poorly, Variable sleep pattern Constipation: Yes, Intermittent constipation Performance Status: Patient is able to manage his own ADLs, is driving some, but unable to drive in the dark. Patient had been walking up to a mile and a half a day, has been doing progressive ambulation is up to half mile daily. He continues with limiting fatigue, but does feel some improvement. - Palliative Care Discussion: Had plan to follow-up on advanced directives with family meeting today, both he and his had forgotten. They are quite easily overwhelmed and forgetful. Will call and remind them next time in the context of follow-through. Patient has not "asked about his prognosis", did reassurance not days to weeks probably most likely months to years given his underlying diagnosis of prostate cancer. He does so want to find something to live for, is brainstorming on a new project. He does report there is tension obviously with his illness, their recent move, and the pandemic. He is worried about his , might needing more support. And also being a burden on her. Counseling provided regarding his anxiety, to address questions regarding the continuum of care. We will plan to address advanced directives with next meeting. Results - Lab Results Lab results reviewed: Yes Impression and Recommendations - Palliative Care Impression: This is an 84-year-old woman who presents with metastatic prostate cancer, involving intra-abdominal lymph nodes, with recent progression of disease. He has been started on Taxotere, continues with ongoing anxiety, improved constipation, and pain is almost resolved. Palliative care to provide support regarding symptom management, psychosocial support and anticipatory guidance with advanced care planning. Recommendations/Counseling Done: 1. Constipation. This is most likely multifactorial, it does increase his abdominal pain discomfort. Patient has found a "sweet spot" to be half capful of MiraLAX daily, has used senna intermittently, but has had to immediate of the results. Patient does feel like he is titrating appropriately. 2. Anorexia. Counseling regarded multiple strategies, is using supplements as well as small frequent feedings. Goal remains for no further weight loss, does feel he is improving overall, and from dietary support. 3. Generalized weakness. Patient has been initiating progressive ambulation program, is managing to do 10 to 15 minutes daily. 4. Anxiety. Patient does process things better with talking and storytelling. Patient continues to need psychosocial support regarding his fluctuating feelings regarding this. 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 We will continue to monitor and offer up mirtazapine if patient continues to have persistent depressive feelings. 5. Oral lesion, left-sided tongue. Pain has resolved, patient reports has had for 2 to 3 years, sizes decreased from last visit. Oral candidiasis has resolved. 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 Will reach out to oncology regarding surveillance recommendations. 6. Advanced care planning. Goal had been to meet today to review advance care planning documents, will set up 1 more home visit to help facilitate family conference regarding this, agreed to do this after the . Time Spent: 60 minutes with greater than 50% of this spent in counseling regarding anxiety, anticipatory guidance, and symptom management. Plan is for follow-up family meeting regarding advance care directives
== END 2020-08-22 14:01 | disposition home or self-care (01) ==
LOC: PC 14:00
PROVIDERS: ATTEND Nurse Practitioner Adult Health
DX: Z51.5 Encounter for palliative care (principal); K59.00 Constipation, unspecified; R63.0 Anorexia; R53.1 Weakness; F41.9 Anxiety disorder, unspecified; K14.8 Other diseases of tongue; C61 Malignant neoplasm of prostate; C77.2 Secondary and unspecified malignant neoplasm of intra-abdominal lymph nodes; I10 Essential (primary) hypertension; I48.91 Unspecified atrial fibrillation; G62.9 Polyneuropathy, unspecified; Z85.828 Personal history of other malignant neoplasm of skin; Z79.899 Other long term (current) drug therapy
CPT/HCPCS: 99350

== ENCOUNTER 2020-08-30 15:45 | Outpatient (CLI) | payer MEDICARE, BC ==
--- NOTE | 2020-08-31 06:24 | CONSULTATION NOTE ---
Palliative Care Follow Up - Referral Referring Provider: Dr. Marguerite Lawrence Time of Visit: [id number] Referral setting: Home Referral Reason: Constipation/peripheral neuropathy/Prostate CA with mets - Information Sources Records reviewed: Previous records reviewed History/Review of Systems obtained from: Patient, Family (met with Rachele his ) Exam limitations: Clinical condition (patient with high anxiety/worsening cognitive deficits) - History of Present Illness Update Brief HPI Update: This is anxious 84-year-old gentleman with metastatic prostate cancer, involving intra-abdominal lymph nodes without bony involvement. His initial diagnosis was 2005 when he received brachytherapy, and has been followed with serial PSAs. He was found to have metastatic prostate cancer in May 2018, initiated on Lupron every 3 months. He has been started on weekly Taxotere 07/31/10, received treatment 3 days ago, is having significant side effects today. Patient reports worsening constipation, has titrated up bowel program, though gets easily overwhelmed, unclear his medication adherence. He had good ask for something for appetite, he is already on Prednisone 5 mg, so we had trialed a small dose of mirtazapine half tablet 7.5 mg, he has felt quite terrible today, though I suspect is not all attributed to the mirtazapine. We will hold it for now to rule that out. He does complain of worsening peripheral neuropathy in his fingers, and feels like his feet are lead, complaining of numbness, not necessarily pain. He has had poor appetite, denies nausea, had experienced some GERD, has started omeprazole with some improvement. Of concern overall, not just in the last 24 hours, as his worsening cognitive deficits. His asked to meet with me separately, because of his forgetfulness, anxiety, and irritability most problematic and related to his frustration and his overwhelmed. Both of them are quite distressed as they are trying to renegotiate and sign up for new insurance. Patient has only a few medications, but is getting easily mixed up, and overwhelmed on timing. Did attempt to set up [facility] and help sort this out for him. Past Medical History: Hypertension, high cholesterol, atrial fib, peripheral neuropathy, MCI, GERD, nocturia, metastatic prostate cancer, history of head neck fracture cancer treated with chemoradiation, anxiety, claustrophobia, fatigue, hernia repair, Port-A-Cath placement, cataracts, tonsil/adenectomy, biopsy lymph node. Social History - Living Situation Living arrangement: At home Living Situation: With spouse/s.o. 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 He has been very active in the arts community. He and his have recently moved, has been a significant adjustment for them. They do have 1 remaining son and 3 granddaughters that provide significant support and moon. Neil his had a stroke a few years ago, she herself is feeling stressed and overwhelmed. She is quite worried about him, as he is having wide mood swings, frustration, and seems to be declining. She had asked to meet separately with me, as she is trying to understand how best to prepare and what is the path moving forward. They actually have very little support for hands-on caregiving, and some financial stressors. Medications/Allergies - Medications Home Medications: Ambulatory Orders Medication Instructions Recorded Confirmed Aspirin [Zoila] 81 mg PO ONCE 02/01/14 08/21/20 Tamsulosin [Flomax] 0.4 mg PO ONCE 02/01/14 08/21/20 Prochlorperazine Maleate 10 mg PO Q6HR PRN #30 tab 07/25/20 08/10/20 [Compazine] predniSONE [Prednisone] 5 mg PO DAILY #90 tablet 07/25/20 08/10/20 Nystatin 100,000 unit PO Q6HR 08/07/20 08/21/20 Senna [Senokot] 1 - 2 tab PO DAILY PRN 08/10/20 08/21/20 polyethylene glycoL 3350 [Miralax] 17 gm PO DAILY 08/10/20 08/21/20 Omeprazole 20 mg PO DAILY 08/14/20 08/21/20 - Allergies Allergies/Adverse Reactions: Allergies Allergy/AdvReac Type Severity Reaction Status Date / Time Penicillins Allergy Mild Rash Verified 08/21/20 12:29 Review of Systems - Constitutional Constitutional: reports: Fatigue, Poor appetite (worsening again;), Weight loss. denies: Fever, Chills - Eyes Eyes: reports: Blurred vision, Vision loss - Ears, Nose & Throat Ears, Nose & Throat: reports: Hearing loss, Dry mouth (distressing symptom for patient today), Other (lesion left tongue area/white adherent has been present 2-3 years; worsened with pain recently with initation of nystatin improved pain/discomfort; no pain today). denies: Mouth lesions (no s/s candidiasis) - Cardiovascular Cardiovascular: reports: Irregular heart rate, Decr. exercise tolerance - Respiratory Respiratory: reports: SOB with exertion. denies: SOB at rest - Gastrointestinal Gastrointestinal: reports: Constipation (still remains problematic; unclear if has been adherent to instructions; reports small amount of hard stool yesterday but feeling pressure), Reflux/heartburn (improved), Bloating, Early satiety, Other (taste changes that are worsening). denies: Nausea - Genitourinary Genitourinary: reports: Frequency, Nocturia (up 5x a night) - Musculoskeletal Musculoskeletal: reports: Stiffness, Muscle weakness - Integumentary Integumentary: reports: Dryness, Hair changes (alopecia; shaved head) - Neurological Neurological: reports: Headache (intermittent), Numbness (reports last few days tingle numbness in fingers; patient had baseline peripheral neuropathy from carbo with head and neck CA tx; reports worsening and difficulty "feeling feet" no pain), Memory problems (STM), Abnormal gait (ataxic gait), Incoordination - Psychiatric Psychiatric: reports: Depression, Anxiety, Aggitation (moods swings and frustration) - Endocrine Endocrine: reports: Intolerance to cold - Hematologic/Lymphatic Hematologic/Lymph: Anemia - All Other Systems All Other Systems: reports: Reviewed and negative Physical Exam - Vital Signs Temperature: 98.0 C Pulse Rate: 52 Respiratory Rate: 18 O2 Saturation: 99 (ra @ rest) Blood Pressure: 128/62 - Physical Exam General Appearance: positive: Alert, Moderate distress, Anxious, Cachetic Eyes Bilateral: positive: Normal inspection ENT: positive: Oral lesions (under left tongue 0.2 x 0.5; has decreased in size;), Other (scar tissue left neck) Neck: positive: Trachea midline. negative: Lymphadenopathy (R), Lymphadenopathy (L) Cardiovascular: positive: Irregular Respiratory: positive: No respiratory distress, Breath sounds nml Abdomen: positive: Soft, Tenderness, Distended, Taut Skin: positive: Pallor, Dryness Extremities: positive: Pedal edema (trace in ankles) Neurologic/Psychiatric: positive: Oriented x3, Weakness, Depressed mood/affect Palliative Care - POLST Patient has POLST: No Pain: Pain worsening, Location (abdominal bloating/pressure;) Tiredness/Fatigue: Severe (7-10) Drowsiness/Sedation: Moderate (4-6) Nausea: None Anorexia: Severe (7-10) Dyspnea: Mild (1-3) Depression: Moderate (4-6) Anxiety: Severe (7-10) Feelings of wellbeing/Perceived Quality of Life: Poor, Worsening Sleep: Variable sleep pattern Constipation: Yes, Unmanaged Performance Status: Patient has had declining functional status, has been trying to keep up his walking. Though does file quite weak. He is using a cane for assisted walk and balance. He is able to manage his own ADLs. Would put him at a PPS of 80% - Palliative Care Discussion: Patient's Neil, wanted to meet and talk about her concerns regarding her , family meeting provided. Reports he has had slow decline with cognitive changes since head neck cancer 3 years ago, she reports that his hearing has made things worse, as far as communication. They did move in the cottages near [facility], in her mind she was thinking eventually would need to transition to assisted living and more support. She is very much worried about his both functional and cognitive decline, and finds his mood swings, anger, and frustration hard. The whole of this has been exacerbated by needing to change insurance, and both having difficulty understanding how it all works. Met with patient, he is very distressed over his symptoms, feeling poorly, and ongoing issues with taste changes, and constipation. He admits to difficulty coping, high anxiety, and depression. Given their frailty and distress today, I did not further explore advanced directives, they do report they have a living will. Patient does understand his treatment is palliative in nature, he is quite angry, and distressed at his worsening health. Impression and Recommendations - Palliative Care Impression: This is an 84-year-old gentleman who presents with metastatic prostate cancer, involving intra-abdominal nodes, with recent progression. He has started on T axotere, is having symptoms of constipation, worsening peripheral neuropathy in the context of numbness, balance in lower extremeties, and numbness and tingling in fingers. He does feel poorly today, unclear if side effect from mirtazapine initiated at half tab 7.5 mg, or extended side effects from treatment earlier in week. Both he and his are having difficulty with his both functional and cognitive decline overall. Palliative care to provide support regarding symptom management, psychosocial support, and anticipatory guidance. Recommendations/Counseling Done: 1. Constipation. Patient did have a small hard bowel movement yesterday, continues to eat poorly secondary to taste changes, reports is drinking adequate fluids. His just restarted MiraLAX, instructed to increase to full capful, and add 2 senna tabs to bowel regimen. This was put in his pillbox, and written instructions provided. 2. Anorexia. This is multifactorial, patient denies nausea, his GERD is better. We had trialed in hopes to improve both his mood and appetite, mirtazapine half tab 7.5 mg with expectation to titrate. Unclear if patient experiencing side effects today from this, will hold for now until tease out patient's current symptomatology. Patient's been encouraged to use Ensure, small frequent feedings, patient with severe taste changes impacting his quality of life. 3. Anxiety. Patient with fluctuating mood, anxiety in the context of this point managing his insurance application. has found someone to assist them, but has been a significant stressor for them both. Patient is quite anxious about ongoing decline, and feels overwhelmed and depressed. 4. GERD. Patient is taking omeprazole 20 mg daily with good response with decreased GERD symptoms. 5. Medication adherence. Patient is having difficulty with memory, recall gets very anxious regarding his medications. He is perseverating quite a bit about this. Did provide pillbox, we did go through and fill it for the week, patient has very few meds, but still feeling overwhelmed. 6. Advanced care planning. Patient to do want to continue with advanced care planning documents, though today both are quite fragile emotionally, and overwhelmed. Will defer this to future visit.Family counseling provided for , regarding she has not been able to participate in any appointments, reviewed current treatment plan, concerns for her 's ongoing decline both cognitively and functionally, and questions regarding the future and continuum of care. Time Spent: 60 minutes with greater than 50% of this time in counseling regarding pain and symptom management, medication adherence, anticipatory guidance.
== END 2020-08-30 15:46 | disposition home or self-care (01) ==
LOC: PC 15:45
PROVIDERS: ATTEND Nurse Practitioner Adult Health
DX: Z51.5 Encounter for palliative care (principal); K59.00 Constipation, unspecified; R63.0 Anorexia; F41.9 Anxiety disorder, unspecified; K21.9 Gastro-esophageal reflux disease without esophagitis; C61 Malignant neoplasm of prostate; C77.2 Secondary and unspecified malignant neoplasm of intra-abdominal lymph nodes; I10 Essential (primary) hypertension; I48.91 Unspecified atrial fibrillation; G62.9 Polyneuropathy, unspecified; Z79.899 Other long term (current) drug therapy
CPT/HCPCS: 99350

== ENCOUNTER 2020-09-11 09:50 | Outpatient (CLI) | payer MEDICARE, BC ==
--- NOTE | 2020-09-11 11:08 | CONSULTATION NOTE ---
Palliative Care Follow Up - Referral Referring Provider: Dr. Marguerite Lawrence Time of Visit: [phone] Referral setting: [facility] [place] Referral Reason: Anxiety/Constipation/Met Prostate CA - Information Sources Records reviewed: Previous records reviewed History/Review of Systems obtained from: Patient Exam limitations: Clinical condition (patient with mild STM deficits) - History of Present Illness Update Brief HPI Update: This is an anxious 84-year-old gentleman with metastatic prostate cancer, involving intra-abdominal lymph nodes, without bony involvement. His initial diagnosis was in 2005, when he received brachytherapy has been followed with serial PSAs, was found to have metastatic prostate cancer in May 2018, and initiated on Lupron every 3 months. Patient has been getting weekly Taxotere since 07/31, continues to have significant side effects, with worsening constipation, peripheral neuropathy exacerbation, poor appetite, intermittent GERD, and fatigue. Patient is anxious at baseline, and has been overwhelmed with his treatment and side effects recently, he has just met with oncology, they are going to give him a break until after the new year. He is much relieved. Patient continues to have short-term memory issues, presents with forgetfulness, escalating anxiety, and irritability. He does easily get overwhelmed. Past Medical History: Hypertension, high cholesterol, atrial fib, peripheral neuropathy, MCI, GERD, nocturia, metastatic prostate cancer, history of head and neck cancer treated with chemoradiation, anxiety, claustrophobia, fatigue, hernia repair, Port-A-Cath placement, cataracts, tonsil/adenectomy, biopsy lymph node. Social History - Living Situation Living arrangement: At home Living Situation: With spouse/s.o. 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 He and his have had quite a bit of tension between the 2 of them, in the context of his failing health per his perception. He does have a son, who feels at the time of his passing, will help patient's , which is a relief to him. Though when asked specifically what kind of plans they have made, he is unable to focus and answer the questions. Medications/Allergies - Medications Home Medications: Ambulatory Orders Medication Instructions Recorded Confirmed Aspirin [Zoila] 81 mg PO ONCE 02/01/14 09/11/20 Tamsulosin [Flomax] 0.4 mg PO ONCE 02/01/14 09/11/20 Prochlorperazine Maleate 10 mg PO Q6HR PRN #30 tab 07/25/20 08/10/20 [Compazine] predniSONE [Prednisone] 5 mg PO DAILY #90 tablet 07/25/20 08/10/20 Nystatin 100,000 unit PO Q6HR 08/07/20 09/11/20 Senna [Senokot] 1 - 2 tab PO DAILY PRN 08/10/20 09/11/20 polyethylene glycoL 3350 [Miralax] 17 gm PO DAILY 08/10/20 09/11/20 Omeprazole 20 mg PO DAILY 08/14/20 09/11/20 - Allergies Allergies/Adverse Reactions: Allergies Allergy/AdvReac Type Severity Reaction Status Date / Time Penicillins Allergy Mild Rash Verified 09/11/20 09:24 Review of Systems - Constitutional Constitutional: reports: Fatigue, Poor appetite, Weight loss. denies: Fever, Chills - Eyes Eyes: reports: Blurred vision, Vision loss - Ears, Nose & Throat Ears, Nose & Throat: reports: Hearing loss, Dry mouth (distressing symptom for patient today), Other (lesion left tongue area/white adherent has been present 2-3 years; worsened with pain recently with initation of nystatin improved pain/discomfort; no pain today) - Cardiovascular Cardiovascular: reports: Decr. exercise tolerance. denies: Edema, Lightheadedness - Respiratory Respiratory: reports: SOB with exertion. denies: SOB at rest - Gastrointestinal Gastrointestinal: reports: Constipation (still remains problematic; unclear if has been adherent to instructions; reports several days of loose stool; had held bowel meds for 2-3 days), Reflux/heartburn (fluctuates), Bloating, Early satiety, Other (taste changes that are worsening- very distressed). denies: Nausea - Genitourinary Genitourinary: reports: Frequency, Nocturia (up 5x a night) - Musculoskeletal Musculoskeletal: reports: Stiffness, Muscle weakness - Integumentary Integumentary: reports: Dryness, Hair changes (alopecia; shaved head) - Neurological Neurological: reports: Headache (intermittent), Numbness (reports last few days tingle numbness in fingers; patient had baseline peripheral neuropathy from carbo with head and neck CA tx; reports worsening and difficulty "feeling feet" no pain), Memory problems (STM), Abnormal gait (ataxic gait), Incoordination - Psychiatric Psychiatric: reports: Depression, Anxiety, Aggitation (moods swings and frustration) - Endocrine Endocrine: reports: Intolerance to cold - Hematologic/Lymphatic Hematologic/Lymph: Anemia - All Other Systems All Other Systems: reports: Reviewed and negative Physical Exam - Vital Signs Temperature: 97.7 C Pulse Rate: 62 Respiratory Rate: 16 O2 Saturation: 98 Blood Pressure: 121/46 - Physical Exam General Appearance: positive: Alert, Moderate distress, Anxious Eyes Bilateral: positive: Normal inspection Neck: positive: Trachea midline Respiratory: positive: No respiratory distress Abdomen: positive: Soft, Tenderness, Distended Skin: positive: Pallor, Dryness Extremities: positive: Pedal edema (trace in ankles) Neurologic/Psychiatric: positive: Oriented x3, Weakness, Depressed mood/affect Palliative Care - POLST Patient has POLST: No Pain: No pain Tiredness/Fatigue: Moderate (4-6) Drowsiness/Sedation: None Nausea: None Anorexia: Moderate (4-6) Dyspnea: Mild (1-3) Depression: Moderate (4-6) Anxiety: Severe (7-10) Feelings of wellbeing/Perceived Quality of Life: Fair, Worsening, Comment (relieved to be off treatment for few weeks) Sleep: Variable sleep pattern (nocturia) Constipation: Yes, Unmanaged Performance Status: Patient continues to walk daily, has less activity tolerance. Is independent in his ADLs. - Palliative Care Discussion: Patient was feeling quite overwhelmed, is quite relieved to have a break from treatment. Just feeling like he cannot cope with all the side effects, was relieved to find that they were consistent with the side effects of his chemotherapy. There is a lot of tension between he and his , as they are trying to navigate his declining health. They have not had any specific conversations regarding his impending decline, or how best they are going to manage moving into the future together. He reports "they have been together forever", he does feel like his son will step up and help her when he has passed. Recommended we continue to meet, he and his to address again advance care planning, will reapproach in 2 to 3 weeks given his current anxiety and feeling of overwhelm currently. Impression and Recommendations - Palliative Care Impression: This is an 84-year-old gentleman who presents with metastatic prostate cancer, involving intra-abdominal nodes, with recent progression. He has been on Taxotere since 07/31/2020, with symptoms of constipation, worsening peripheral neuropathy in the context of numbness, balance his lower extremities, and numbness and tingling in his feet fingers. He continues to have feelings of overwhelm, and fluctuating anxiety. Palliative care to continue to provide support for symptom management and psychosocial support Recommendations/Counseling Done: 1. Constipation. Will titrate again bowel program, recommended reinitiating MiraLAX at half capful daily, if no BM in 48 hours to take 1-2 senna. Goal is to have a daily soft BM. Patient does have intermittent bloating. 2. Anorexia. This is multifactorial, patient denies nausea, continues with fluctuating GERD. Unclear if he is being adherent to his omeprazole, rewritten instructions to add to his pillbox. He has been needing intermittent Tums, would attribute this some also to his use of prednisone. He has been instructed to take it with food. Will consider retrying mirtazapine, as patient is off Taxotere and able to delineate side effects versus chemo side effects. 3. Anxiety. Patient continues with fluctuating mood, anxiety in the context of feeling overwhelmed. They are making progress with her insurance application. This is been a significant stressor for both he and his . Patient does get quite anxious about his ongoing decline, and gets overwhelmed and depressed. Patient has used cognitive behavioral techniques in the past to manage in his acting, recommended he reinitiate his breathing exercises and look for other ways to distract himself. Patient acknowledges understanding. 4. GERD. Patient reports he has not been taking omeprazole, he had been taking it with good response. Unclear, patient's short-term memory issues often added to the confusion of medication adherence. He has been reinstructed to put it in his med box. May need to consider titrating off prednisone if continues with problems. 5. Advanced care planning. Patient and do want to complete some advanced care planning, though may be in a better space if he is off chemo for couple weeks, will plan a visit in the next month to readdress this. Patient has very unrealistic expectations about pending decline, as well as high anxiety about considering end-of-life options in the future. Time Spent: 40 minutes with greater than 50% of this done in counseling regarding symptom management, and anticipatory guidance.
== END 2020-09-11 09:51 | disposition home or self-care (01) ==
LOC: PC 09:50
PROVIDERS: ATTEND Nurse Practitioner Adult Health
DX: Z51.5 Encounter for palliative care (principal); K59.03 Drug induced constipation; R63.0 Anorexia; F41.9 Anxiety disorder, unspecified; K21.9 Gastro-esophageal reflux disease without esophagitis; G62.0 Drug-induced polyneuropathy; T45.1X5A Adverse effect of antineoplastic and immunosuppressive drugs, initial encounter; C61 Malignant neoplasm of prostate; C77.2 Secondary and unspecified malignant neoplasm of intra-abdominal lymph nodes; I10 Essential (primary) hypertension; Z79.899 Other long term (current) drug therapy
CPT/HCPCS: 99215

== ENCOUNTER 2020-10-08 | Outpatient (CLI) | payer MEDICARE, BC ==
--- NOTE | 2020-10-08 18:55 | CONSULTATION NOTE ---
Palliative Care Follow Up - Referral Referring Provider: Dr. Marguerite Lawrence Time of Visit: 2330-4710 Referral setting: Home Referral Reason: Goals of Care/Anxiety/Constipation/Met Prostate CA - Information Sources Records reviewed: Previous records reviewed History/Review of Systems obtained from: Patient, Family ( Rachele present) Exam limitations: Clinical condition (patient with worsening memory problems) - History of Present Illness Update Brief HPI Update: This is an anxious 84-year-old gentleman with metastatic prostate cancer involving abdominal lymph nodes without bony mets. His initial diagnosis was in 2005, when he received brachytherapy followed by serial PSAs, and was found to have metastatic prostate cancer in 2018. He has been receiving Lupron every 3 months in 2018, most recently weekly Taxol from with tolerating poorly with fatigue, increased cognitive changes, anorexia, peripheral neuropathy exacerbation, and feeling overwhelmed. He is anxious at baseline, he has been currently on a break. He He continues have short-term memory issues, intermittent constipation, fluctua ting mood instability, and gets easily overwhelmed tickly related to his frustration with his cognitive deficits. Past Medical History: Hypertension hyperlipidemia atrial fib, peripheral neuropathy, MCI, GERD, nocturia, metastatic prostate cancer, history of head neck cancer treated with chemoradiation, anxiety, claustrophobia, fatigue, hernia repair, Port-A-Cath placement, cataracts, tonsil/adenectomy, biopsy of lymph node. Social History - Living Situation Living arrangement: At home Living Situation: With spouse/s.o. Support System: Patient lives with his aayush Rachele, there is quite a bit of tension between them, as he is quite irritable and short. He has 1 son who is since passed, and 1 son who is available for some support but has limitations. He does have very supportive granddaughters he is staying in contact with him. 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 He continues to work on projects as he feels like this is keeping him going. Medications/Allergies - Medications Home Medications: Ambulatory Orders Medication Instructions Recorded Confirmed Aspirin [Zoila] 81 mg PO ONCE 02/01/14 10/08/20 Tamsulosin [Flomax] 0.4 mg PO ONCE 02/01/14 10/08/20 Prochlorperazine Maleate 10 mg PO Q6HR PRN #30 tab 07/25/20 10/08/20 [Compazine] predniSONE [Prednisone] 5 mg PO DAILY #90 tablet 07/25/20 10/08/20 Senna [Senokot] 1 - 2 tab PO DAILY PRN 08/10/20 10/08/20 polyethylene glycoL 3350 [Miralax] 8.5 gm PO DAILY 08/10/20 10/08/20 Omeprazole 20 mg PO DAILY 08/14/20 10/08/20 Ibuprofen 200 mg PO DAILY PRN 10/08/20 10/08/20 - Allergies Allergies/Adverse Reactions: Allergies Allergy/AdvReac Type Severity Reaction Status Date / Time Penicillins Allergy Mild Rash Verified 09/25/20 12:16 Review of Systems - Constitutional Constitutional: reports: Fatigue (remains persistent but improved), Weight stable. denies: Fever, Chills - Eyes Eyes: reports: Blurred vision, Vision loss - Ears, Nose & Throat Ears, Nose & Throat: reports: Hearing loss, Dry mouth (distressing symptom for patient today) - Cardiovascular Cardiovascular: reports: Decr. exercise tolerance. denies: Chest pain - Respiratory Respiratory: reports: Snoring (becoming quite problematic), SOB with exertion. denies: SOB at rest - Gastrointestinal Gastrointestinal: reports: Constipation (improved; using Miralax intermittently;), Reflux/heartburn (fluctuates), Bloating, Early satiety, Other (taste changes resolving). denies: Nausea - Genitourinary Genitourinary: reports: Frequency, Nocturia (up 5x a night) - Musculoskeletal Musculoskeletal: reports: Stiffness, Muscle weakness - Integumentary Integumentary: reports: Dryness, Hair changes (alopecia; shaved head) - Neurological Neurological: reports: Numbness ( patient had baseline peripheral neuropathy from carbo with head and neck CA tx; reports worsening and difficulty "feeling feet" no pain; numbness and tingling in fingers worse with taxotere), Memory problems (STM), Abnormal gait (ataxic gait) - Psychiatric Psychiatric: reports: Depression, Anxiety, Aggitation (moods swings and frustration) - Endocrine Endocrine: reports: Intolerance to cold - Hematologic/Lymphatic Hematologic/Lymph: Anemia - All Other Systems All Other Systems: reports: Reviewed and negative Physical Exam - Vital Signs Temperature: 97.3 C Pulse Rate: 63 Respiratory Rate: 18 O2 Saturation: 97 (ra @ rest) Blood Pressure: 116/63 - Physical Exam General Appearance: positive: Alert, Anxious Eyes Bilateral: positive: Normal inspection ENT: positive: No signs of dehydration Neck: positive: Trachea midline Cardiovascular: positive: Regular rate & rhythm Respiratory: positive: No respiratory distress, Breath sounds nml Abdomen: positive: Non-tender, Soft, Distended (mild) Skin: positive: Pallor, Dryness Extremities: positive: No pedal edema Neurologic/Psychiatric: positive: Oriented x3, Mood/affect nml (appears brighter and mood improved off chemo), Weakness Palliative Care - POLST Patient has POLST: Yes POLST Status: DNR, Selective Treatment (completed today at appointment) Pain: Pain unchanged, Location (fingers/hands) Tiredness/Fatigue: Moderate (4-6) (improved) Drowsiness/Sedation: Mild (1-3) Nausea: None Anorexia: Mild (1-3) (improved) Dyspnea: Mild (1-3) Depression: Moderate (4-6) Anxiety: Moderate (4-6) Feelings of wellbeing/Perceived Quality of Life: Fair, Improved (has enjoyed time off chemo) Constipation: Yes, Unmanaged Performance Status: Patient is still trying to keep up activity daily, taking short walks. He still has some gait instability but is better able to tolerate. He is independent in his ADLs. He continues to drive as long as is not dark out, he does feel like he has had some improvement in his fatigue. - Palliative Care Discussion: Met with patient and his , to complete advanced care planning documents. Patient does have a DPOA, which does have Neil his as the primary and his granddaughter Rebecca [phone] as backup. He does have a directive physician, we did review it though it has all kinds of contradicting statements in it, but overall agreement is that patient does currently have a terminal diagnosis, he would not want to be resuscitated if it was his time, he would still though accept treatment for reversible conditions. We did have a long discussion regarding concerns around end-of-life, he doesn't want to be too much on his , but we also discussed the implications both financial and practical for placement. does express wanting to be at home with hospice for her , agreed would continue to have conversations as that scenario unfolded in the future. We did complete the POLST with DN AR/DNI and selective treatments. Goals were to focus on quality of life issues, he is concerned about restarting chemotherapy if his life expectancy is short, does not want to spend it feeling as poorly as he did. He is having scans and conversations with Dr. ALETHA Leach next week. At end-of-life he would like to have a comfortable respectful , he is not set on setting just wants it to be as easy as possible on his family. We did discuss family dynamics and concerns expressed by both. 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 Results - Lab Results Lab results reviewed: Yes Impression and Recommendations - Palliative Care Impression: This is an 83-year-old gentleman who has metastatic prostate cancer involving intra-abdominal nodes, with recent progression. He has been on hiatus from his Taxotere, secondary to severity of side effects. He is feeling better, today meeting with and patient regarding advance care planning documents and goals of care. Palliative care to continue provide support for symptom management and psychosocial support Recommendations/Counseling Done: 1. Constipation. Patient continues to titrate his bowel program, does have intermittent bloating. Is doing a little bit better, encouraged to continue with MiraLAX half capful daily. Patient is eating better with improved intake, no further diarrhea. 2. Anorexia. This is better, he has return of his taste, is feeling little bit more hungry. He is using Ensure, has had no further weight loss. We will continue to monitor. Currently we will continue to put mirtazapine on hold for now, less pills are better in his situation. 3. Anxiety. Patient continues with fluctuating mood and anxiety, he does get easily overwhelmed this is often related to his cognitive issues, he does have insight into this. Patient is doing better with out complications of treatment schedule, is working on his projects and getting things done and feeling less frustrated overall. 4. Advanced care planning. Appointment was focused on advance care planning, counseling regarding goals of care, patient's wanting to focus on quality of life, does recognize the seriousness of his illness. Patient does have DPOA, is appropriate document, we did review living will, lots of contradicting information and there, we did use the POLST for clarification. Patient's goals are to focus on quality of life issues, does want to treat reversible conditions, does not want to be resuscitated or intubated, discussion regarding end-of-life planning, options and continuum reviewed. Patient and 's questions were addressed and answered.POLST was completed. Time Spent: 75 minutes with greater than 50% of this done in counseling regarding goals of care, advanced care planning, symptom management anticipatory guidance
== END 2020-10-08 16:01 | disposition home or self-care (01) ==
CPT/HCPCS: 99350

== ENCOUNTER 2020-10-26 15:45 | Outpatient (CLI) | payer MEDICARE ==
--- NOTE | 2020-10-26 17:13 | CONSULTATION NOTE ---
Palliative Care Follow Up - Referral Referring Provider: Dr. Marguerite Lawrence Time of Visit: [id number] Referral setting: Home Referral Reason: Met Prostate Cancer/Depression/Anxiety - Information Sources Records reviewed: Previous records reviewed History/Review of Systems obtained from: Patient, Family ( Rachele present) Exam limitations: Clinical condition (patient with [facility] and MCI) - History of Present Illness Update Brief HPI Update: This is an anxious and depressed 84-year-old gentleman with metastatic prostate cancer, involving abdominal/retroperitoneal lymph nodes. His initial diagnosis was in 2005, when he received brachytherapy, followed by serial PSAs and was found to have metastatic disease in 2018. He has been receiving Lupron every 3 months since 2017, and had received weekly Taxol from 07/2011 with tolerating poorly with fatigue fatigue, anorexia, worsening peripheral neuropathy, and feeling overwhelmed. He has had a break, from his treatment in August, has done actually better with his energy, eating better, and was doing fairly well emotionally. He had seen oncology on 10/16, had asked to delay his treatment until after his birthday. Patient does have ongoing metastatic disease, he had a CT scan of abdomen pelvis 10/10/2020 that shows extensive para-aortic read no adenopathy. His PSA has been climbing, he had called me because of worsening depression, escalating anxiety, and intermittent hot flashes. Patient asks to be treated for his depression, he had tolerated mirtazapine p oorly, we did try venlafaxine, unfortunately had shakiness, dizziness as well, was hoping to treat both his anxiety and depression. He took it for 2 days, held it last night, is feeling a little bit better. He just feels like he is doing poorly overall even previous to trialing the medication. I am meeting with his and himself, with patient's cognitive deficits, with poor memory, it is quite exhausting for his . They do get quite frustrated with each other, and both are somewhat burned out with just the overwhelming layers of complexity with pandemic, politics, and patient's serious illness. Patient's conversation today was very reflective, patient is considering stopping treatment. Palliative care providing anticipatory guidance and education if were to choose hospice. Past Medical History: Hypertension, hyperlipidemia, atrial fib, peripheral neuropathy, MCI, GERD, nocturia, metastatic prostate cancer, history of head neck treated with chemoradiation, anxiety, claustrophobia, fatigue, hernia repair, Port-A-Cath placement, cataracts, tonsil/adenectomy, biopsy of lymph node Social History - Living Situation Living arrangement: At home Living Situation: With spouse/s.o. Support System: Patient lives with his aayush Neil, she herself is had a stroke, and are having a lot of tension and frustration between the two of them. Patient has one son who is since passed, one son is available for some support but notable limitations. Patient does have very supportive granddaughters are staying in contact with. 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 He continues to work on projects as he feels like this is what keeps him going. Medications/Allergies - Medications Home Medications: Ambulatory Orders Medication Instructions Recorded Confirmed Aspirin [Zoila] 81 mg PO ONCE 02/01/14 10/16/20 Tamsulosin [Flomax] 0.4 mg PO ONCE 02/01/14 10/16/20 Prochlorperazine Maleate 10 mg PO Q6HR PRN #30 tab 07/25/20 10/16/20 [Compazine] predniSONE [Prednisone] 5 mg PO DAILY #90 tablet 07/25/20 10/16/20 Senna [Senokot] 1 - 2 tab PO DAILY PRN 08/10/20 10/16/20 polyethylene glycoL 3350 [Miralax] 8.5 gm PO DAILY 08/10/20 10/16/20 Omeprazole 20 mg PO DAILY 08/14/20 10/16/20 Ibuprofen 200 mg PO DAILY PRN 10/08/20 10/16/20 - Allergies Allergies/Adverse Reactions: Allergies Allergy/AdvReac Type Severity Reaction Status Date / Time Penicillins Allergy Mild Rash Verified 10/16/20 10:54 Review of Systems - Constitutional Constitutional: reports: Fatigue (remains persistent), Night sweats (had trialed venlafaxine to see if would help; these have been persistent and worsening), Weight stable (134). denies: Fever, Chills - Eyes Eyes: reports: Blurred vision, Vision loss - Ears, Nose & Throat Ears, Nose & Throat: reports: Hearing loss, Dry mouth - Cardiovascular Cardiovascular: reports: Decr. exercise tolerance. denies: Edema, Lightheadedness - Respiratory Respiratory: reports: Snoring (becoming quite problematic), SOB with exertion. denies: SOB at rest - Gastrointestinal Gastrointestinal: reports: Constipation (improved; using Miralax intermittently;), Reflux/heartburn (fluctuates patient with difficulty remembering medications), Bloating, Early satiety, Other (taste changes improved). denies: Nausea - Genitourinary Genitourinary: reports: Frequency, Nocturia (up 5x a night) - Musculoskeletal Musculoskeletal: reports: Stiffness, Muscle weakness - Integumentary Integumentary: reports: Dryness, Hair changes (hair growing back "duck down") - Neurological Neurological: reports: Numbness ( patient had baseline peripheral neuropathy from carbo with head and neck CA tx; reports worsening and difficulty "feeling feet" no pain; numbness and tingling in fingers worse with taxotere), Memory problems (STM issues; continues to struggle), Abnormal gait (ataxic gait) - Psychiatric Psychiatric: reports: Depression, Anxiety, Aggitation (moods swings and frustration) - Endocrine Endocrine: reports: Intolerance to cold - Hematologic/Lymphatic Hematologic/Lymph: Anemia - All Other Systems All Other Systems: reports: Reviewed and negative Physical Exam - Vital Signs Temperature: 97.2 C Pulse Rate: 100 Respiratory Rate: 16 O2 Saturation: 98 (ra @ rest) Blood Pressure: 154/74 - Physical Exam General Appearance: positive: Alert, Anxious Eyes Bilateral: positive: Normal inspection ENT: positive: No signs of dehydration Neck: positive: Trachea midline Cardiovascular: positive: Regular rate & rhythm Respiratory: positive: No respiratory distress, Breath sounds nml Abdomen: positive: Non-tender, Soft, Distended (mild) Skin: positive: Pallor, Dryness Extremities: positive: No pedal edema Neurologic/Psychiatric: positive: Oriented x3, Weakness, Depressed mood/affect Palliative Care - POLST Patient has POLST: Yes POLST Status: DNR, Selective Treatment Pain: Pain worsening, Location (lower back; worsens at night; occasionally taking ibuprofen; denies need for stronger medication) Tiredness/Fatigue: Severe (7-10) Drowsiness/Sedation: Mild (1-3) Nausea: None Anorexia: Mild (1-3) Dyspnea: Mild (1-3) Depression: Severe (7-10) Anxiety: Severe (7-10) Feelings of wellbeing/Perceived Quality of Life: Poor, Worsening Sleep: Variable sleep pattern Constipation: Yes, Managed Performance Status: Patient has had mild decline, he is still ambulatory. He has had no falls, he does have an ataxic gait. With his episodes of feeling shaky and unsure, has not been walking long distances. He is able to manage his ADLs. - Palliative Care Discussion: Patient has had a very difficult last week, feeling very depressed and overwhelmed. Has some anxiety about his pending chemo, unfortunately had bad side effects from his antidepressant. We did discuss weighing benefits of burdens as he was feeling that he may consider just allowing natural , and no further treatment. He reports he does have anxiety of , and does not expect to "beat it", but wondering if he were able to just relax him to his decline if he would feel better. His is quite supportive of his decision if he decides to transition to comfort focused care only. I did recommend he talk over with his oncologist, is a most likely will be modifying his treatment and it may not be quite so devastating in his perception. He is feeling like he will make a decision over the next few days, and expects to see oncologist on 11/05 and make a decision. Impression and Recommendations - Palliative Care Impression: This is a anxious 83-year-old gentleman with metastatic prostate cancer, with progression of disease, does have metastatic disease in abdominal/retroperitoneal nodes. Patient's been feeling poorly, with exacerbation of both his depression and anxiety, as well as persistent hot flashes and night sweats. He is continued to struggle weighing benefits and burdens of continue with treatment, versus comfort focused care. Palliative care providing support for symptom management, and anticipatory guidance. Recommendations/Counseling Done: 1. Depression. This is multifactorial, have trialed second antidepressant with hope to treat for hot flashes as well with venlafaxine. Patient with side effects, after 48 hours had to discontinue. Discussed patient appears to be sensitive and most likely would not benefit. Patient continues to feel overwhelmed by much of what is happening, this is impacted significantly by his MCI, and anxiety. Patient does do best by processing, will make referral to either medical palliative care social and political studies professor or nurse practitioner manager for support. Patient if transition to hospice, would benefit from support of team. 2. Anorexia. This is continue to improve, he does have early satiety, but has not lost any further weight. He is using Ensure, and has had some intermittent bloating. His constipation is currently controlled. 3. Metastatic prostate cancer. Patient remains overwhelmed and with high anxiety regarding pending return of treatment schedule. Patient considering transitioning to comfort focused care, education provided regarding hospice and anticipatory guidance of decline. Discussed even if chose to continue treatment, would be facing similar decisions in the future, provided education both to patient and and addressed questions. 4. Advanced care planning. Patient does have POLST, with DN AR, selective treatments. Patient goals goals are to continue focus on quality of life issues, struggling with whether to continue treatment or not, answered questions as best able in the context of prognosis and expected decline if stops treatment. Time Spent: 60 minutes with greater than 50% of this done in counseling regarding symptom management, goals of care, and anticipatory guidance
== END 2020-10-26 15:46 | disposition home or self-care (01) ==
LOC: PC 15:45
PROVIDERS: ATTEND Nurse Practitioner Adult Health
DX: Z51.5 Encounter for palliative care (principal); F32.9 Major depressive disorder, single episode, unspecified; R63.0 Anorexia; F41.9 Anxiety disorder, unspecified; R23.2 Flushing; R61 Generalized hyperhidrosis; C61 Malignant neoplasm of prostate; C77.2 Secondary and unspecified malignant neoplasm of intra-abdominal lymph nodes; C78.6 Secondary malignant neoplasm of retroperitoneum and peritoneum; Z66 Do not resuscitate
CPT/HCPCS: 99350

== ENCOUNTER 2020-11-12 14:15 | Outpatient (CLI) | payer MEDICARE, OTHER ==
--- NOTE | 2020-11-12 16:12 | CONSULTATION NOTE ---
Palliative Care Follow Up - Referral Referring Provider: Dr. Marguerite Lawrence Time of Visit: [id number] Referral setting: Home Referral Reason: Met Prostate CA/Pain of neoplastic origin/Goals of Care - Information Sources Records reviewed: Previous records reviewed History/Review of Systems obtained from: Patient, Family ( Rachele present) Exam limitations: Clinical condition (patient with STM deficits) - History of Present Illness Update Brief HPI Update: This is an anxious and depressed 85-year-old gentleman with metastatic prostate cancer involving the abdominal/retroperitoneal lymph nodes. He had met with oncology, at this point in time is decided not to continue with chemotherapy/Taxotere. Dr. Lawrence, did discuss with him the option of oral Xtandi, in the hopes of having less side effects. After much discussion, he is wanting to give this a try. We did discuss in the context of his increased symptoms today, would recommend getting this started as soon as possible. His PSA had risen from 205 on 10/15/2020 255 on 11/05/2020. He has been considering transition to hospice, but would like to give this a try. He presents today with increased pain, specifically a band of pain radiating from his left groin area across the mid back area down into his left buttocks. He does get some relief with standing up and walking, but reports it is increasing in intensity. He has only tried acetaminophen, 2 tablets with good results. He has been quite hesitant to use any medication without discussing with provider. He is also having increased trouble with voiding, starting his stream, no hematuria or dysuria, but more frequent and feeling less like he is emptying his bladder. He has been taking tamsulosin which did originally help, but is less effective. Patient continues with mild-moderate cognitive deficits, these are quite frustrating for him. 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 His is quite supportive of either direction, though after much discussion, he feels like this would be the last thing he would try, and would transition to hospice if side effects were not acceptable to him. Past Medical History: Hypertension, hyperlipidemia, atrial fib, peripheral neuropathy, MCI, GERD, no cturia, metastatic prostate cancer, history of head neck treated with chemoradiation, anxiety, claustrophobia, fatigue, surgery; hernia repair, Port-A-Cath placement, cataracts, tonsillectomy/adenectomy, biopsy of lymph node. Social History - Living Situation Living arrangement: At home Living Situation: With spouse/s.o. Support System: This with his aayush Neil, she herself has had a stroke. They are trying to decrease the tension between them, patient has 1 son who is since passed, 1 son available for some support but with notable limitations. Patient has very supportive granddaughters, and stays very engaged with his friends. 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 He continues to work on projects as he feels like this is what keeps him going Medications/Allergies - Medications Home Medications: Ambulatory Orders Medication Instructions Recorded Confirmed Aspirin [Zoila] 81 mg PO ONCE 02/01/14 11/12/20 Tamsulosin [Flomax] 0.4 mg PO BID 02/01/14 11/12/20 Prochlorperazine Maleate 10 mg PO Q6HR PRN #30 tab 07/25/20 11/12/20 [Compazine] predniSONE [Prednisone] 5 mg PO DAILY #90 tablet 07/25/20 11/12/20 Senna [Senokot] 1 - 2 tab PO DAILY PRN 08/10/20 11/12/20 polyethylene glycoL 3350 [Miralax] 8.5 gm PO DAILY PRN 08/10/20 11/12/20 Omeprazole 20 mg PO DAILY 08/14/20 11/12/20 Acetaminophen [Tylenol] 650 mg PO TID MDD 8 tabs 11/12/20 11/12/20 - Allergies Allergies/Adverse Reactions: Allergies Allergy/AdvReac Type Severity Reaction Status Date / Time Penicillins Allergy Mild Rash Verified 11/06/20 11:18 Review of Systems - Constitutional Constitutional: reports: Fatigue (improved), Night sweats, Weight stable (134). denies: Fever, Chills - Eyes Eyes: reports: Blurred vision, Vision loss - Ears, Nose & Throat Ears, Nose & Throat: reports: Hearing loss, Dry mouth - Cardiovascular Cardiovascular: reports: Lightheadedness (occasional), Decr. exercise tolerance - Respiratory Respiratory: reports: Snoring (becoming quite problematic), SOB with exertion, Pleuritic pain (left side with deep inspiration). denies: SOB at rest - Gastrointestinal Gastrointestinal: reports: Constipation (improved; using Miralax intermittently;), Reflux/heartburn (fluctuates patient with difficulty remembering medications), Bloating, Early satiety, Other (taste changes improved). denies: Nausea - Genitourinary Genitourinary: reports: Frequency, Urgency, Incontinence, Nocturia (up 5x a night) - Musculoskeletal Musculoskeletal: reports: Stiffness, Muscle weakness - Integumentary Integumentary: reports: Dryness, Hair changes (hair growing back "duck down") - Neurological Neurological: reports: Numbness ( patient had baseline peripheral neuropathy from carbo with head and neck CA tx; reports worsening and difficulty "feeling feet" no pain; numbness and tingling in fingers worse with taxotere), Memory problems (STM issues; continues to struggle), Abnormal gait (ataxic gait) - Psychiatric Psychiatric: reports: Depression, Anxiety, Aggitation (moods swings and frustration) - Endocrine Endocrine: reports: Intolerance to cold - Hematologic/Lymphatic Hematologic/Lymph: Anemia - All Other Systems All Other Systems: reports: Reviewed and negative Physical Exam - Vital Signs Temperature: 97.5 C Pulse Rate: 77 Respiratory Rate: 18 O2 Saturation: 96 (ra @ rest) Blood Pressure: 135/72 - Physical Exam General Appearance: positive: Alert, Anxious Eyes Bilateral: positive: Normal inspection ENT: positive: No signs of dehydration Neck: positive: Trachea midline Cardiovascular: positive: Regular rate & rhythm Respiratory: positive: No respiratory distress Abdomen: positive: Non-tender, Soft, Distended (mild) Skin: positive: Pallor, Dryness Extremities: positive: No pedal edema Neurologic/Psychiatric: positive: Oriented x3, Weakness, Depressed mood/affect, Flat affect Palliative Care - POLST Patient has POLST: Yes POLST Status: DNR, Selective Treatment Pain: Pain worsening, Comment (see hPI) Tiredness/Fatigue: Moderate (4-6) Drowsiness/Sedation: None Nausea: None Anorexia: Mild (1-3) (early satiety) Dyspnea: Mild (1-3) Depression: Mild (1-3) Anxiety: Moderate (4-6) Feelings of wellbeing/Perceived Quality of Life: Fair, Acceptable, Worsening Sleep: Variable sleep pattern (up frequently to void) Constipation: Yes, Managed, Intermittent constipation Performance Status: Patient has been less able to take his walks, does not ambulate short distances in the house. Does feel like he is having increased difficulty overall with mild functional decline. Is able to manage his own ADLs. - Palliative Care Discussion: Patient continues to struggle with "what next". He feels like he has some attachment to his team, would feel distal oil not trying treatment. He on the other hand does also wonder about giving up without giving this a try. He would feel okay transitioning to hospice care, we did discuss though already patient is having symptoms, if not treating cancer would continue to progress. After much discussion, questions answered, agreement was to try Xtandi, if did not like the side effects, could transition for hospice support. Results - Lab Results Lab results reviewed: Yes Impression and Recommendations - Palliative Care Impression: This is an 85-year-old gentleman who continues to struggle with his current quality of life, and metastatic disease. Patient continues to feel poorly, co ntinues away struggling with pain benefits and burdens of treatment, had met with oncology and was provided another option. After much discussion, patient would like to give it a try, with the understanding if patient does not tolerate would transition to supportive care only and hospice team. Recommendations/Counseling Done: 1. Metastatic prostate cancer with abdominal/retroperitoneal mets. After much discussion, patient been provided option of Xtandi through oncologist, would like to proceed. Did reach out to oncology, given patient's worsening symptom burden recommend to start BRODY. Dr. Lawrence in clinic tomorrow. Instructed back would contact him after insurance approvals and appointment for medication teaching. 2. Voiding dysfunction. Patient had been having urinary retentive symptoms, these have recurred. Patient presents with both frequency, difficulty with emptying bladder, and starting stream. Had originally responded to initiation of Tamsulosin 0.4 mg, will go ahead and increase to twice daily. 3. Pain of neoplastic origin. Patient instructed to initiate acetaminophen 650 mg 3 times daily scheduled, given patient sensitivity to medications. He reports it had been effective, but was hesitant to use. Discussed next step would be increasing or adding opioid, patient is to contact palliative care nurse practitioner if not effective with new schedule. 4. Anxiety. Patient continues with underlying anxiety, does seem less distressed. After much discussion, is still feels satisfied with his current quality of life, though it is declining. Counseling provided to normalize current feelings of grief and loss. 5. Advanced care planning. Significant discussion around Covid vaccination, I did recommend given current guidelines. Though current vaccination not available, given websites and resources to continue to watch. Patient has completed POLST with [facility]/selective treatments. If patient chooses not to complete her continue with treatment. Would recommend early hospice referral, given his complex social situation will need time to plan for managing end-of-life care Time Spent: 60 minutes with greater than 50% of this done in counseling regarding goals, symptom management, and anticipatory guidance. Coordination of care with oncology team
== END 2020-11-12 14:16 | disposition home or self-care (01) ==
LOC: PC 14:15
PROVIDERS: ATTEND Nurse Practitioner Adult Health
DX: Z51.5 Encounter for palliative care (principal); C61 Malignant neoplasm of prostate; C77.2 Secondary and unspecified malignant neoplasm of intra-abdominal lymph nodes; R35.0 Frequency of micturition; R39.14 Feeling of incomplete bladder emptying; R39.11 Hesitancy of micturition; G89.3 Neoplasm related pain (acute) (chronic); R10.32 Left lower quadrant pain; M54.89 Other dorsalgia; F41.9 Anxiety disorder, unspecified; Z66 Do not resuscitate
CPT/HCPCS: 99350

== ENCOUNTER 2020-12-14 11:30 | Outpatient (CLI) | payer MEDICARE, OTHER ==
--- NOTE | 2020-12-14 17:08 | CONSULTATION NOTE ---
Palliative Care Follow Up - Referral Referring Provider: Dr. Marguerite Lawrence Time of Visit: [id number] Referral setting: [facility] [place] Referral Reason: Pain of neoplastic origin/Met Prostate Ca - Information Sources Records reviewed: Previous records reviewed History/Review of Systems obtained from: Patient, Family ( Rachele able to participate) Exam limitations: Clinical condition (patient with STM deficits) - History of Present Illness Update Brief HPI Update: This is an anxious 85-year-old gentleman with metastatic prostate cancer, involving the abdominal/retroperitoneal lymph nodes. He has initiated treatment with Xtandi, at this point in time has had no other side effects other than fatigue. He was deciding between this and best supportive care, and has decided to trial treatment. His pain is reduced, he still has pain in his left upper quadrant between his ribs and pelvic bone, that radiates across mid back area. He does get relief with standing and walking, he is using acetaminophen 2 tabs in the a.m. He has not had much improvement with the increase in tamsulosin twice a day, but it has not exacerbated. Patient appears much calmer, less overwhelmed, though is challenged with his medication adherence. He does have mild to moderate cognitive deficits which are quite frustrating for him. He has been working on an art project. They have restarted walking on a daily basis, so he is feeling better. He is working on art project. His constipation is currently controlled. His most persistent symptom has been the fatigue, this has worsened over the last couple weeks with his medication. He has not had any further weight loss, does have some early satiety, continues with mild taste changes. He does have some dizziness first thing in the morning, but this does resolve after a couple hours. Past Medical History: Hypertension, hyperlipidemia, atrial fib, peripheral neuropathy, MCI, GERD, nocturia, metastatic prostate cancer, history of head neck treated with chemoradiation, anxiety, claustrophobia, fatigue, surgical history: Hernia repair, Port-A-Cath placement, cataracts, biopsy of lymph node, tonsillectomy/adenectomy. Social History - Living Situation Living arrangement: At home Living Situation: With spouse/s.o. Support System: Stacie Mariela, she herself has had a stroke, and can be challenged sometimes with feeling overwhelmed. They do have quite a bit of tension between them, which often escalates with his anxiety and forgetfulness. They have very supportive granddaughters, he stays engaged with friends. 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 Continues to enjoy to watch film/DVDs and work on his projects. He feels like this is what keeps him going. Medications/Allergies - Medications Home Medications: Ambulatory Orders Medication Instructions Recorded Confirmed Aspirin [Zoila] 81 mg PO ONCE 02/01/14 12/14/20 Tamsulosin [Flomax] 0.4 mg PO BID 02/01/14 12/14/20 predniSONE [Prednisone] 5 mg PO DAILY #90 tablet 07/25/20 12/14/20 Omeprazole 20 mg PO DAILY 08/14/20 12/14/20 Acetaminophen [Tylenol] 650 mg PO DAILY MDD 8 tabs 11/12/20 12/11/20 Enzalutamide [Xtandi] 160 mg PO QPM 12/14/20 12/14/20 - Allergies Allergies/Adverse Reactions: Allergies Allergy/AdvReac Type Severity Reaction Status Date / Time Penicillins Allergy Mild Rash Verified 12/11/20 10:43 Review of Systems - Constitutional Constitutional: reports: Fatigue (worsened again; persistent), Night sweats, Weight stable (134). denies: Fever, Chills - Eyes Eyes: reports: Blurred vision, Vision loss - Ears, Nose & Throat Ears, Nose & Throat: reports: Hearing loss, Dry mouth - Cardiovascular Cardiovascular: reports: Lightheadedness (in am on awakening), Decr. exercise tolerance - Respiratory Respiratory: reports: Snoring (becoming quite problematic), SOB with exertion. denies: SOB at rest - Gastrointestinal Gastrointestinal: reports: Reflux/heartburn (fluctuates patient with difficulty remembering medications), Early satiety, Other (taste changes improved). denies: Constipation (improved; using Miralax intermittently;), Nausea - Genitourinary Genitourinary: reports: Frequency, Urgency, Incontinence, Nocturia (up 5x a night) - Musculoskeletal Musculoskeletal: reports: Stiffness, Muscle weakness - Integumentary Integumentary: reports: Dryness, Hair changes (hair growing back "duck down") - Neurological Neurological: reports: Numbness ( patient had baseline peripheral neuropathy from carbo with head and neck CA tx; reports worsening and difficulty "feeling feet" no pain; numbness and tingling in fingers worse with taxotere), Memory problems (STM issues; continues to struggle), Abnormal gait (ataxic gait) - Psychiatric Psychiatric: reports: Depression, Anxiety, Aggitation (moods swings and frustration) - Endocrine Endocrine: reports: Intolerance to cold - Hematologic/Lymphatic Hematologic/Lymph: reports: Anemia (12.3) - All Other Systems All Other Systems: reports: Reviewed and negative Physical Exam - Vital Signs Temperature: 97.7 C Pulse Rate: 76 Respiratory Rate: 16 O2 Saturation: 98 (ra @ rest) Blood Pressure: 137/76 - Physical Exam General Appearance: positive: Alert Eyes Bilateral: positive: Normal inspection ENT: positive: No signs of dehydration, Oral lesions (left side of tongue persistent white plaque lesion/not painful present 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') Neck: positive: Trachea midline Cardiovascular: positive: Regular rate & rhythm Respiratory: positive: No respiratory distress, Breath sounds nml, Diminished in bases Abdomen: positive: Soft, Tenderness (left side), Distended (mild) Skin: positive: Pallor, Dryness Extremities: positive: No pedal edema Neurologic/Psychiatric: positive: Oriented x3, Weakness, Depressed mood/affect, Flat affect Palliative Care - POLST Patient has POLST: Yes POLST Status: DNR, Selective Treatment Pain: Pain improved, Location (left side/abdomen), Severity (mild to mod) Tiredness/Fatigue: Moderate (4-6) Drowsiness/Sedation: Mild (1-3) Nausea: None Anorexia: Mild (1-3) Dyspnea: Mild (1-3) Depression: Mild (1-3) Anxiety: Moderate (4-6) Feelings of wellbeing/Perceived Quality of Life: Good, Acceptable, Improved Sleep: Variable sleep pattern (relates to nocturia) Constipation: Yes, Managed Performance Status: Patient and have resumed their walks, he is trying to stay active. He is able to manage his ADLs. - Palliative Care Discussion: Hopeful, is hoping that this will give him his both some quality and quantity of life. At this point in time he is tolerating the treatment without severe side effects, he continues to work on projects and set short-term goals. Results - Lab Results Lab results reviewed: Yes Lab and Imaging Results: PSA 255 to 299 (just after started Xtandi) Impression and Recommendations - Palliative Care Impression: This is an 85-year-old gentleman, who continues to struggle with quality of life and metastatic prostate cancer. He is moving forward with Xtandi, so far as tolerated fine. He is less anxious today, symptom burden improved. Palliative care providing support for symptom management and anticipatory guidance. Recommendations/Counseling Done: 1. Metastatic prostate cancer with metastatic disease to abdominal/retroperitoneal. Patient currently on Xtandi, and patient confused regarding co-pay, did get some assistance, as it was $1000 a month. Called to [facility] to clarify, will continue to get it delivered. 2. Voiding dysfunction. Patient still with nocturia, has had some improvement with ability to start stream, and emptying bladder with tamsulosin 0.4 mg increased to twice daily. Though he does have difficulty recalling before and after. 3. Pain of neoplastic origin. Patient's pain has diminished, is taking acetaminophen 650 mg in a.m., not needing an p.m. Patient is currently satisfied with current regimen. 4. Anxiety. Patient continues with underlying anxiety, though does seem less distressed currently. He does feel like his current quality of life is acceptable, is starting to walk again, seen he is tolerating his medication is feeling somewhat relieved. Patient has been trialed on antidepressant/antianxiety patient unable to tolerate side effects. 5. Medication adherence. Patient is challenged with his memory issues, reviewed his medication schedule, trying to keep it simple. Patient has been able to swallow his Xtandi despite large size of pills. 6. Advanced care planning. Patient has completed POLST with [facility]/selective treatments. Patient this point in time is continuing with Xtandi and treatment, if patient refuses further treatment or does not tolerate side effects, goal is to transition to hospice. Giving his complex social situation, will need an early hospice referral to be able to manage for end-of-life care. 60 minutes with greater than 50% of this time in counseling regarding pain and symptom management, management of anxiety, counseling to normalize current feelings of grief and loss and anticipatory guidance
== END 2020-12-14 11:31 | disposition home or self-care (01) ==
LOC: PC 11:30
PROVIDERS: ATTEND Nurse Practitioner Adult Health
DX: Z51.5 Encounter for palliative care (principal); C61 Malignant neoplasm of prostate; C77.2 Secondary and unspecified malignant neoplasm of intra-abdominal lymph nodes; R35.1 Nocturia; G89.3 Neoplasm related pain (acute) (chronic); F41.9 Anxiety disorder, unspecified; G62.0 Drug-induced polyneuropathy; T45.1X5A Adverse effect of antineoplastic and immunosuppressive drugs, initial encounter; Z85.89 Personal history of malignant neoplasm of other organs and systems; Z79.899 Other long term (current) drug therapy; Z66 Do not resuscitate
CPT/HCPCS: 99215

== ENCOUNTER 2020-12-31 16:13 | Emergency (ER) | payer MEDICARE, OTHER ==
[2020-12-31 17:16] LABS: BASOPHILS % (AUTO) 0.3 %; EOSINOPHILS % (AUTO) 0.1 %; HCT - HEMATOCRIT 36.3 % (42.0-52.0); HGB - HEMOGLOBIN 11.6 g/dL (14.0-18.0); LYMPHOCYTES # (AUTO) 0.7 10^3/uL (1.5-3.5); LYMPHOCYTES % (AUTO) 8.8 %; MEAN CORPUSCULAR HEMOGLOBIN 29.1 pg (27.0-31.0); MEAN PLATELET VOLUME 9.7 fL (7.4-11.4); MONOCYTES # (AUTO) 0.6 10^3/uL (0.0-1.0); MONOCYTES % (AUTO) 7.8 %; NEUTROPHILS # (AUTO) 6.3 10^3/uL (1.5-6.6); NEUTROPHILS % (AUTO) 82.7 %; PLT - PLATELET COUNT 223 10^3/uL (130-450); RED BLOOD COUNT 3.99 10^6/uL (4.70-6.10); RED CELL DISTRIBUTION WIDTH 14.2 % (12.0-15.0); WHITE BLOOD COUNT 7.6 x10^3/uL (4.8-10.8)
[2020-12-31 17:26] LABS: BILIRUBIN,URINE NEGATIVE (NEGATIVE); GLUCOSE, URINE (UA) NEGATIVE (NEGATIVE); KETONES,URINE (UA) TRACE mg/dL (NEGATIVE); LEUKOCYTE ESTERASE, URINE NEGATIVE (NEGATIVE); NITRITE,URINE NEGATIVE (NEGATIVE); OCCULT BLOOD,URINE NEGATIVE (NEGATIVE); PH,URINE 5.5 PH (5.0-7.5); PROTEIN,URINE TRACE mg/dL (NEGATIVE); UROBILINOGEN,URINE 0.2 (NORMAL) E.U./dL (NORMAL)
[2020-12-31 17:28] LABS: CLARITY,URINE CLEAR (CLEAR)
[2020-12-31 17:29] LABS: ALBUMIN 3.3 g/dL (3.2-5.5); ALBUMIN/GLOBULIN RATIO 0.9 (1.0-2.2); BILIRUBIN,TOTAL 0.5 mg/dL (0.2-1.0); CALCIUM 10.6 mg/dL (8.5-10.3); POTASSIUM 3.8 mmol/L (3.5-5.0); TOTAL PROTEIN 7.1 g/dL (6.7-8.2)
--- NOTE | 2020-12-31 17:40 | ED Physician Documentation ---
History of Present Illness - Stated complaint Stated Complaint: TROUBLE WALKING, SHAKY, WEAK, NOT EATING - Chief complaint Chief Complaint: General - History obtained from History obtained from: Patient - History of Present Illness Timing: How many weeks ago (1-2) Pain level max: 9 Pain level now: 9 - Additonal information Additional information: Patient is an 85-year-old male who presents to the emergency department with abdominal pain and weakness. He has metastatic prostate cancer. He states it is throughout his abdomen. The pain is worse than his usual abdominal pain. He states he has felt shaky and weak. No fevers. No chills. No vomiting. No diarrhea. He states he has not been eating drinking much and feels dehydrated. Review of Systems Ten Systems: 10 systems reviewed and negative Constitutional: denies: Fever, Chills Ears: denies: Ear pain Nose: denies: Rhinorrhea / runny nose, Congestion Throat: denies: Sore throat Cardiac: denies: Chest pain / pressure, Palpitations Respiratory: denies: Dyspnea, Cough GI: denies: Vomiting, Diarrhea Skin: denies: Rash Musculoskeletal: denies: Neck pain, Back pain Neurologic: denies: Headache PD PAST MEDICAL HISTORY - Past Medical History Past Medical History: Yes Cardiovascular: Hypertension, High cholesterol, Atrial fibrillation Respiratory: None Neuro: Headaches, Peripheral neuropathy, Other Endocrine/Autoimmune: None GI: GERD : Nocturia, Frequency, Other HEENT: None Psych: Anxiety, Claustrophobia Musculoskeletal: Fatigue Derm: None - Past Surgical History Past Surgical History: Yes General: Other Cardiovascular: Other HEENT: Cataracts, Tonsil/Adenoidectomy Derm: Other - Present Medications Home Medications: Ambulatory Orders Medication Instructions Recorded Confirmed Aspirin [Zoila] 81 mg PO ONCE 02/01/14 12/31/20 Tamsulosin [Flomax] 0.4 mg PO BID 02/01/14 12/31/20 predniSONE [Prednisone] 5 mg PO DAILY #90 tablet 07/25/20 12/31/20 Omeprazole 20 mg PO DAILY 08/14/20 12/31/20 Acetaminophen [Tylenol] 650 mg PO DAILY MDD 8 tabs 11/12/20 12/31/20 Enzalutamide [Xtandi] 160 mg PO QPM 12/14/20 12/31/20 oxyCODONE [Roxicodone] 5 mg PO Q4-6H PRN #14 tablet 12/31/20 - Allergies Allergies/Adverse Reactions: Allergies Allergy/AdvReac Type Severity Reaction Status Date / Time Penicillins Allergy Mild Rash Verified 12/31/20 16:33 - Social History Does the pt smoke?: No Smoking Status: Never smoker Does the pt drink ETOH?: No Does the pt have substance abuse?: No - Immunizations Immunizations are current?: Yes - POLST Patient has POLST: Yes PD ED PE NORMAL - Vitals Vital signs reviewed: Yes - General General: Alert and oriented X 3, No acute distress, Well developed/nourished - HEENT HEENT: PERRL, Moist mucous membranes - Neck Neck: Supple, no meningeal sign - Cardiac Cardiac: RRR, Strong equal pulses - Respiratory Respiratory: No respiratory distress, Clear bilaterally - Abdomen Abdomen: Soft, Non distended, Other (hepatomegaly, mild diffuse tenderness.) - Back Back: No spinal TTP - Derm Derm: Warm and dry - Extremities Extremities: No edema, No calf tenderness / cord - Neuro Neuro: Alert and oriented X 3 - Psych Psych: Normal mood, Normal affect Results - Vitals Vitals: Vital Signs - 24 hr 12/31/20 12/31/20 12/31/20 16:24 16:55 17:11 Temperature 36.1 C L 36.1 C L Heart Rate 47 L 47 L 86 Respiratory 16 15 18 Rate Blood Pressure 139/73 H 139/73 H 132/121 H O2 Saturation 92 92 97 12/31/20 12/31/20 12/31/20 17:51 18:00 18:30 Temperature Heart Rate 77 79 80 Respiratory 15 16 16 Rate Blood Pressure 131/68 H 141/69 H 170/75 H O2 Saturation 98 96 97 12/31/20 12/31/20 12/31/20 19:03 19:30 20:08 Temperature Heart Rate 86 77 77 Respiratory 16 23 20 Rate Blood Pressure 170/70 H 148/75 H 140/73 H O2 Saturation 95 100 100 Oxygen O2 Source Room air - EKG (time done) 1651 Rate: Rate (enter#) (87) Rhythm: NSR [place]: LAD Intervals: Normal MN, Wide QRS Ischemia: Normal ST segments - Labs Labs: Laboratory Tests 12/31/20 12/31/20 12/31/20 17:10 17:10 17:19 WBC 7.6 RBC 3.99 L Hgb 11.6 L Hct 36.3 L MCV 91.0 MCH 29.1 MCHC 32.0 RDW 14.2 Plt Count 223 MPV 9.7 Neut # (Auto) 6.3 Lymph # (Auto) 0.7 L Hendricks # (Auto) 0.6 Eos # (Auto) 0.0 Baso # (Auto) 0.0 Absolute Nucleated RBC 0.00 Nucleated RBC % 0.0 Sodium 134 L Potassium 3.8 Chloride 96 L Carbon Dioxide 26 Anion Gap 12.0 BUN 24 H Creatinine 1.0 Estimated GFR (MDRD) 71 L Glucose 176 H Calcium 10.6 H Total Bilirubin 0.5 AST 14 ALT 11 Alkaline Phosphatase 61 Total Protein 7.1 Albumin 3.3 Globulin 3.8 Albumin/Globulin Ratio 0.9 L Lipase 18 L Urine Color YELLOW Urine Clarity CLEAR Urine pH 5.5 Ur Specific [place] 1.025 Urine Protein TRACE Urine Glucose (UA) NEGATIVE Urine Ketones TRACE Urine Occult Blood NEGATIVE Urine Nitrite NEGATIVE Urine Bilirubin NEGATIVE Urine Urobilinogen 0.2 (NORMAL) Ur Leukocyte Esterase NEGATIVE Ur Microscopic Review NOT INDICATED Urine Culture Comments NOT INDICATED - Rads (name of study) CT abd/pelvis Radiology: Prelim report reviewed, EMP read contemporaneously, See rad report PD MEDICAL DECISION MAKING - ED course Complexity details: reviewed results, re-evaluated patient, considered differential, d/w patient ED course: 85-year-old male with metastatic prostate cancer, significantly enlarged retroperitoneal lymphadenopathy compared to September 2020. I spoke with oncology, they recommend follow-up in the office. Patient is well-appearing, nontoxic. Afebrile. Tolerating p.o. without difficulty. Feels better after IV fluids. Will prescribe pain medication for home and have him follow-up with oncology. Patient counseled regarding signs and symptoms for which I believe and urgent re-evaluation would be necessary. Patient with good understanding of and agreement to plan and is comfortable going home at this time This document was made in part using voice recognition software. While efforts are made to proofread this document, sound alike and grammatical errors may occur. IMPRESSION: Markedly increased presumably metastatic retroperitoneal lymphadenopathy when compared with September 2020 exam. Several new hepatic hypodensities not present on the prior study, also presumably new metastases. Findings are consistent with disease progression. Complete compression and possible invasion of the IVC by the metastatic lymphadenopathy at the level of the amber hepatis and below. Departure - Departure Disposition: 01 Home, Self Care Clinical Impression: Prostate cancer metastatic to multiple sites Abdominal pain Qualifiers: Abdominal location: unspecified location Qualified Code(s): R10.9 - Unspecified abdominal pain Condition: Good Instructions: ED Abdominal Pain Unkn Cause Follow-Up: Ashlyn Lawrence MD [Physician No Access] - Ashlyn Lawrence MD [Provider Admit Priv/Credential] - Within 3 Days Desire Lau ARNP [Provider Admit Priv/Credential] - Kayla Mohamud MD [Physician No Access] - Prescriptions: oxyCODONE [Roxicodone] 5 mg PO Q4-6H PRN #14 tablet PRN Reason: Abdominal Pain Comments: Make sure you are drinking plenty of fluids. Follow-up with Dr. Lawrence for further care. Your CT scan results are below. I spoke with Dr. Lawrence's partner renuka as she was not on-call. He will relay the message to her as well. Do not drink alcohol or drive while on narcotic pain medicine. Note that many narcotic pain relievers also contain tylenol/acetaminophen. Please ensure that your total dose of acetaminophen from all sources does not exceed 3 grams (3000mg) per day. You may constipated on this medication, take a stool softener such as "Colace" twice a day while you are on it. Also recommend a [id number] laxative such as senna or MiraLAX any day that you do not have a bowel movement. If you received narcotic pain medication in the emergency department, do not drive or operate machinery for the next 24 hours. IMPRESSION: Markedly increased presumably metastatic retroperitoneal lymphadenopathy when compared with September 2020 exam. Several new hepatic hypodensities not present on the prior study, also presumably new metastases. Findings are consistent with disease progression. Complete compression and possible invasion of the IVC by the metastatic lymphadenopathy at the level of the amber hepatis and below. Discharge Date/Time: 12/31/20 20:12
[2020-12-31] MEDS ORDERED: SODIUM CHLORIDE 0.9% 1,000 ML IV STA ×2 (18:04)
[2020-12-31] MEDS ORDERED: IOVERSOL 320 100 ML VIAL IVP ONE ×2 (18:42→19:55)
--- NOTE | 2020-12-31 19:10 | CT Report ---
PROCEDURE: Abdomen/Pelvis W INDICATIONS: Diffuse abdominal pain, metastatic prostate cancer CONTRAST: IV CONTRAST: Optiray 320 ml: 100 PO CONTRAST: *NO PO CONTRAST TECHNIQUE: After the administration of intravenous contrast, 5 mm thick sections acquired from the diaphragms to the symphysis. 5 mm thick coronal and sagittal reformats were acquired. For radiation dose reducti on, the following was used: automated exposure control, adjustment of mA and/or kV according to antionette ent size. COMPARISON: 04/11/2018 and 10/10/2020 CT scans of the abdomen and pelvis. FINDINGS: These images demonstrate a marked interval increase in the extent and severity of the previously seen retroperitoneal lymphadenopathy. The IVC is completely encased and flattened by the adenopathy at th e level of the amber hepatis extending for several centimeters inferiorly. There may be portal venous invasion by the adenopathy, although this is not definitive. Several hepatic hypodensities are new when compared with the most recent prior study, and are suspici ous for metastatic disease. The gallbladder, spleen, pancreas, and adrenal glands are within normal limits. No hydroureteronephro sis or asymmetric perinephric fat stranding. Normal caliber of the ureters. It should be noted that t he ureters course immediately adjacent to the adenopathy without definite evidence of encasement or n arrowing. Radiotherapy seeds in the prostate. No threshold enlarged pelvic or inguinal lymph node. No free pelv ic fluid. There is no abnormally dilated or obviously thickened loop of bowel. There is a pancolonic distributi on of formed stool. No suspicious lytic or blastic osseous lesion identified within the field of view. IMPRESSION: Markedly increased presumably metastatic retroperitoneal lymphadenopathy when compared with September 2020 exam. Several new hepatic hypodensities not present on the prior study, also presumably new metastases. Findings are consistent with disease progression. Complete compression and possible invasion of the IVC by the metastatic lymphadenopathy at the level of the amber hepatis and below. Reviewed by: Himanshu Felix MD on 12/31/2020 7:09 PM PDT Approved by: Himanshu Felix MD on 12/31/2020 7:09 PM PDT Station ID: [id number]
[2020-12-31] MEDS ORDERED: MORPHINE 2 MG/ML CARPUJECT IVP STA (19:35)
[2020-12-31] MEDS ORDERED: ONDANSETRON 4 MG/2 ML VIAL IVP STA (19:49)
[2020-12-31 20:08] VITALS: BP 140/73
== END 2020-12-31 20:12 | disposition home or self-care (01) ==
LOC: ED 16:13
DX: C61 Malignant neoplasm of prostate (principal); C79.89 Secondary malignant neoplasm of other specified sites; R10.9 Unspecified abdominal pain
CPT/HCPCS: 36415; 74177; 80053; 81003; 83690; 85025; 93005; 96361; 96374; 96375; 99284; Q9967; 81001; 87086

== ENCOUNTER 2021-01-02 11:30 | Outpatient (CLI) | payer MEDICARE, OTHER ==
--- NOTE | 2021-01-02 16:41 | CONSULTATION NOTE ---
Palliative Care Follow Up - Referral Referring Provider: Dr. Marguerite Lawrence Time of Visit: [id number] Referral setting: Home Referral Reason: Met Prostate Ca/ FTT - Information Sources Records reviewed: Previous records reviewed History/Review of Systems obtained from: Patient, Family (Rachele is ) Exam limitations: Clinical condition (patient with worsening memory issues) - History of Present Illness Update Brief HPI Update: This is an anxious 85-year-old gentleman with metastatic prostate cancer, involving abdominal/retroperitoneal lymph nodes with progression of disease. He was seen in the emergency room on 12/31 with increasing pain and distress. His CT scan of the abdomen showed markedly increased retroperitoneal lymphadenopathy as well as new hepatic hypodensities presumed to be mets. There was also complete compression and possible invasion of the IVC by metastatic lymphadenopathy at the level of the amber hepatitis as below. His experiences been radiating abdominal pain, somewhat diffuse in nature. He had been actually managed fairly well on just acetaminophen, but had escalated over the last 2448 hrs. He had recently started on Xtandi, patient has had several incidences of responding poorly to medications, including Taxotere, venlafaxine, mirtazapine, various narcotic meds in the past. Patient has only been on the Xtandi since late November, but has had worsening pain, fatigue, tremors, dizzyness and both functional and cognitive decline He did meet with oncology yesterday, and understands he has disease progression. They discussed the option of hospice care, with life expectancy measured in weeks to months, or to restart Taxotere with life expectancy of possibly a year or longer if able to tolerate treatment. He at this point in time is very exhausted, does not want to restart chemotherapy, and would like to focus on being at home and quality of life. He has been at this juncture before, with the Xtandi. He does understand without treatment, the disease will progress and lead to his imminent decline. The focus of care and hospice would be no further hospitalization, focus on comfort, and no further treatment. Patient has been having worsening cognitive status, more difficulty tracking things, has felt overwhelmed not only with his treatment schedule, but medication. He does have some goals he had wanted accomplished, but is feeling much more at peace and letting some of these things go. Even previous to his ED visit, he has felt his quality of life is deteriorating. His prostate cancer initial diagnosis in 2005, we received brachytherapy, and was followed with serial PSAs. He was then found to have metastatic prostate cancer in May 2018, at which point he was initiated on Lupron every 3 months. He was then initiated on weekly Taxotere, with 2 weeks on and 1 week off, he tolerated this quite poorly. 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 He had received chemoradiation at that point in time and found it very onerous treatment with significant weight loss and complex side effects. He is on active surveillance for this currently has some residual neuropathy from his original [place]. Past Medical History: Lipidemia, atrial fib, peripheral neuropathy, MCI, GERD, nocturia, metastatic prostate cancer, history of head neck treated with chemoradiation, anxiety, claustrophobia, fatigue, surgical history; hernia repair, Port-A-Cath placement, cataracts, biopsy of lymph node, tonsillectomy /adenectomy Social History - Living Situation Living arrangement: At home Living Situation: With spouse/s.o. 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 He and his have recently downsized, which has been an adjustment for them. They have 1 son and 3 granddaughters that provide significant support and moon. They do have 1 son who unfortunately about 40 years ago. Rachele his has a history of stroke, and does have some difficulty sometimes processing. Patient is very hard of hearing, and her voice is very soft. There is often quite a bit of tension between the 2 of them We did discuss what kind of caregiving support JCecelia would have, she reports 2 granddaughters do live with in driving distance and would be able to provide intermittent support. They do have many friends and the community she feels would be willing to step up, or assist with helping her find more help if needed. She does not feel like her remaining son, will be able to take on a "caregiving role". Medications/Allergies - Medications Home Medications: Ambulatory Orders Medication Instructions Recorded Confirmed Aspirin [Zoila] 81 mg PO ONCE 02/01/14 01/02/21 Tamsulosin [Flomax] 0.4 mg PO BID 02/01/14 01/02/21 predniSONE [Prednisone] 5 mg PO DAILY #90 tablet 07/25/20 01/02/21 Omeprazole 20 mg PO DAILY 08/14/20 01/02/21 Acetaminophen [Tylenol] 650 mg PO DAILY MDD 8 tabs 11/12/20 01/02/21 HYDROcod/ACETAM 5/325 [[place] 5/325] 0.5 - 1 tab PO Q4HR PRN 01/02/21 01/02/21 Nystatin [Mycostatin] 5 ml PO QID MDD swish and swallow 01/02/21 01/02/21 - Allergies Allergies/Adverse Reactions: Allergies Allergy/AdvReac Type Severity Reaction Status Date / Time Penicillins Allergy Mild Rash Verified 01/01/21 12:14 oxycodone AdvReac Hallucinati Verified 01/02/21 17:08 ons Review of Systems - Constitutional Constitutional: reports: Night sweats, Weight loss. denies: Fever, Chills - Eyes Eyes: reports: Blurred vision, Vision loss - Ears, Nose & Throat Ears, Nose & Throat: reports: Hearing loss, Hoarseness, Mouth lesions, Dry mouth - Cardiovascular Cardiovascular: reports: Lightheadedness (in am on awakening), Decr. exercise tolerance - Respiratory Respiratory: reports: Snoring (becoming quite problematic), SOB with exertion. denies: SOB at rest - Gastrointestinal Gastrointestinal: reports: Constipation (improved; using Miralax intermittently;), Reflux/heartburn (fluctuates patient with difficulty remembering medications; improved with omeprazole), Early satiety, Other (taste changes with new med Xtandi). denies: Nausea - Genitourinary Genitourinary: reports: Frequency, Urgency, Incontinence, Nocturia (up 5x a night) - Musculoskeletal Musculoskeletal: reports: Stiffness, Muscle weakness, Other (tremourous) - Integumentary Integumentary: reports: Dryness, Hair changes (hair growing back "duck down") - Neurological Neurological: reports: Numbness ( patient had baseline peripheral neuropathy from carbo with head and neck CA tx; reports worsening and difficulty "feeling feet" no pain; numbness and tingling in fingers worse with taxotere), Memory problems (STM issues; continues to struggle and seems worse confirmed by patient and ), Abnormal gait (ataxic gait) - Psychiatric Psychiatric: reports: Depression, Anxiety, Aggitation (moods swings and frustration) - Endocrine Endocrine: reports: Intolerance to cold - Hematologic/Lymphatic Hematologic/Lymph: reports: Anemia (11.6) - All Other Systems All Other Systems: reports: Reviewed and negative Physical Exam - Vital Signs Temperature: 96.5 C Pulse Rate: 76 Respiratory Rate: 18 O2 Saturation: 97 (ra @ rest) Blood Pressure: 112/64 - Physical Exam General Appearance: positive: Alert, Mild distress, Anxious Eyes Bilateral: positive: Normal inspection ENT: positive: Oral lesions (left side of tongue persistent white plaque lesion/not painful present 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'), Other (presents with severe case of oral candidiasis) Neck: positive: Trachea midline Cardiovascular: positive: Regular rate & rhythm Respiratory: positive: No respiratory distress, Breath sounds nml, Diminished in bases Abdomen: positive: Soft, Tenderness (left side), Distended (mild) Skin: positive: Pallor, Dryness Extremities: positive: No pedal edema Neurologic/Psychiatric: positive: Oriented x3, Weakness, Depressed mood/affect, Flat affect Palliative Care - POLST Patient has POLST: Yes POLST Status: DNR, Selective Treatment Pain: Pain worsening, Location (diffuse abdominal; radiating through to lower back), Severity (mod/severe), Comment (took 1/2 [place] last night with relief; took a [place] of APAP this am; mod and persistent but concerned about SE opioid) Tiredness/Fatigue: Severe (7-10) Drowsiness/Sedation: Moderate (4-6) Nausea: Mild (1-3) Anorexia: Moderate (4-6), Weight loss Dyspnea: Mild (1-3) Depression: Severe (7-10) Anxiety: Severe (7-10) Feelings of wellbeing/Perceived Quality of Life: Poor, Worsening Constipation: Yes, Opoid induced, Unmanaged Performance Status: Patient has continued to have functional decline, he has been trying to be persistent and keep up his walking. But his gait is balance are becoming more unsteady, he is limited both by tremulousness and pain. He is at high risk for falls, is currently still able to get back and forth to the bathroom, but his activity tolerance is decreasing. - Palliative Care Discussion: Patient does admit to being overwhelmed, has found his last few months quite difficult. 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 He is somewhat depressed about not getting things done, but does feel like he would like to "move forward" and have more support for this transition time. He does have many things he wants to plan for around end-of-life, is hoping to have some time as well as some energy to be able to do this. After much discussion, he would like to call it quits on treatment, and allow all things to unfold as they may. We did discuss he may have a time period of feeling a little bit better, off the treatment, and with hospice support. Counseling provided again regarding the hospice benefit for focus on comfort versus treatment, patient and did verbalize understanding. They are both appropriately tearful, but feeling at this point is the best decision for them. Impression and Recommendations - Palliative Care Impression: This is a 85-year-old gentleman who has continued to struggle with his quality of life with metastatic prostate cancer, most recently at the ED with confirmation of progressive disease. He has been having increased abdominal pain, declining functional status, as well as worsening cognitive status. Patient presents today with goals to discuss goals of care, after much discussion patient and in agreement to hospice support versus trial of taxotere or treatment. Palliative care providing anticipatory guidance, pain and symptom management, and hospice referral for transition. Recommendations/Counseling Done: 1. Pain of neoplastic origin. Patient had been prescribed oxycodone at emergency room department, patient recalls a bad experience with oxycodone with his head and neck cancer, including hallucinations. Patient willing to try hydrocodone 5 mg/acetaminophen 325 mg, as small doses. Did tolerate a half tab last night, with relief of discomfort. We did discuss he can use acetaminophen during the day at 650 mg up to every 6 hours if he were more comfortable with that. I did encourage him to allow himself to get some relief from his moderate to severe distress. 2. Constipation. Patient has had intermittent constipation, with increased retroperitoneal lymphadenopathy, will need to be aggressive with bowel program. Patient has been instructed to restart his MiraLAX, can use it up to twice a day. He does have senna in the home if needed. 3. Anorexia. Patient with poor appetite, had been at the emergency room, was quite confused as they had given him some weird discharge instructions around "abdominal pain" that really had nothing to do with him. We did discuss his current abdominal pain is related to his worsening progression of disease, and encouraged him to eat foods that sounded good for him, and small quantities frequently. 4. Oral candidiasis. Patient complained of severe dryness of mouth, on examination has recurrent oral candidiasis. Nystatin ordered, patient has used before but wrote out instructions given his current level of "overwhelmed". will picker feeder. 5. Generalized weakness. Patient is experiencing functional decline, is high risk for falls. We did discuss at some point possible hospital bed in the living room, has he does have difficulty getting up and down from the bed, particularly with his frequent nocturia getting into the bathroom. Patient is currently sleeping on the couch, with his feet up does relieve some of the pressure on his abdomen that is radiating through to the back. He does have a cane, encouraged to use for assistance for balance. Patient may benefit from walker. It is a small space, at this point in time feels like he is managing. 6. Anxiety. Patient actually with some relief having made his decision, he does feel like this would be best for JL, to have the support as he is unable to really participate much in explaining how he is doing, and she has not been managing his meds, he has been trying to do it independently. They will benefit from frequent contact and support of hospice team. 7. Advanced care planning. Patient does have a POLST with [facility] AR/selective treatments. At this point in time given patient's current level of distress did not revisit POLST. Counseling provided regarding hospice benefit, patient would like to have his goals aligned with comfort, does recognize his decline, and is hoping to get his end-of-life planning in place. 60 minutes with greater than 50% of this done in counseling regarding goals of care, pain and symptom management, anticipatory guidance, college and hospice team.
== END 2021-01-02 11:31 | disposition home or self-care (01) ==
LOC: PC 11:30
PROVIDERS: ATTEND Nurse Practitioner Adult Health
DX: Z51.5 Encounter for palliative care (principal); G89.3 Neoplasm related pain (acute) (chronic); C61 Malignant neoplasm of prostate; C77.2 Secondary and unspecified malignant neoplasm of intra-abdominal lymph nodes; K59.00 Constipation, unspecified; R63.0 Anorexia; B37.0 Candidal stomatitis; R53.1 Weakness; F41.9 Anxiety disorder, unspecified; Z85.89 Personal history of malignant neoplasm of other organs and systems; Z79.899 Other long term (current) drug therapy; Z66 Do not resuscitate
CPT/HCPCS: 99350